=== PATIENT | female | born 1980 | race Caucasian/White ===

== ENCOUNTER → 2018-04-23 17:24 | Outpatient (CLI) | payer OTHER, SELFPAY ==
[2018-04-29 12:15] LABS: HPV Reflexed? NOT INDICATED
== END ==
PROVIDERS: Family Provider Family Medicine; PCP Family Medicine; Referring Provider Obstetrics & Gynecology; Visit Provider Obstetrics & Gynecology
DX: Z12.4 Encounter for screening for malignant neoplasm of cervix (principal)
CPT/HCPCS: 88175; G0145

== ENCOUNTER → 2018-10-25 11:57 | Outpatient (CLI) | payer OTHER, SELFPAY ==
[2018-10-25 14:42] LABS: HIV - WCH Non-Reactive (Nonreactive); Hepatitis B Surface Antibody Reactive; Hepatitis C Antibody Non-Reactive (Nonreactive)
[2018-10-25 15:29] LABS: Chlamydia Trachomatis by PCR Negative (Negative); Neisserai gonorrhoeae by PCR Negative (Negative); Probe Check PASS; Sample Adequacy Control PASS; Specimen Processing Control PASS
[2018-11-01 01:38] LABS: Rapid Plasmin Reagin (RPR) NONREACTIVE (NONREACTIVE)
== END ==
PROVIDERS: Visit Provider Obstetrics & Gynecology
DX: Z11.3 Encounter for screening for infections with a predominantly sexual mode of transmission (principal); N39.0 Urinary tract infection, site not specified
CPT/HCPCS: 36415; 86592; 86703; 86706; 86803; 87086; 87088; 87491; 87591

== ENCOUNTER → 2018-10-28 10:33 | Outpatient (CLI) | payer OTHER, SELFPAY ==
[2018-10-28 12:41] LABS: Potassium 4.1 mmol/L (3.5-5.1)
== END ==
PROVIDERS: Family Provider Dermatology; Visit Provider Dermatology
DX: L71.8 Other rosacea (principal); L70.8 Other acne; Z79.899 Other long term (current) drug therapy
CPT/HCPCS: 36415; 84132

== ENCOUNTER → 2018-11-12 14:18 | Outpatient (CLI) | payer OTHER, SELFPAY | PROVIDERS: Family Provider Family Medicine; PCP Family Medicine; Referring Provider Family Medicine; Visit Provider Family Medicine | DX: N39.0 Urinary tract infection, site not specified (principal) | CPT/HCPCS: 87086; 87088; 87186 ==

== ENCOUNTER → 2019-05-14 17:30 | Outpatient (CLI) | payer OTHER, SELFPAY ==
[2019-05-20 18:34] LABS: HPV APTIMA, High Risk Negative (Negative)
[2019-05-20 18:52] LABS: HPV Reflexed? YES, CHARGE PATIENT
== END ==
PROVIDERS: Visit Provider Obstetrics & Gynecology
DX: Z12.4 Encounter for screening for malignant neoplasm of cervix (principal)
CPT/HCPCS: 87624; 88175; G0145

== ENCOUNTER → 2019-10-16 11:14 | Outpatient (CLI) | payer OTHER, SELFPAY ==
[2019-10-16 13:03] LABS: Absolute Lymphocyte Count 1.98 X10^3/uL (0.83-4.51); Absolute Neutrophil Count 4.7 X10^3/uL (2.0-7.7); Basophil# 0.05 X10^3/uL; Basophil% 0.7 % (0-1); Eosinophil# 0.12 X10^3/uL; Eosinophils% 1.6 % (0-5); Hematocrit 41.9 % (37-47); Hemoglobin 13.3 g/dL (12.0-15.0); Lymphocyte # 1.98 X10^3/ul (4.0); Lymphocyte % 26.7 % (19-41); Mean Corp Hgb Conc 31.7 g/dL (32-36); Mean Corpuscular Hgb 31.7 pg (27.0-32.0); Mean Corpuscular Volume 99.8 fL (81-99); Mean Platelet Vol. 9.8 fl (6.2-12.0); Monocyte% 6.7 % (0-10); NRBC Flagged by Analyzer 0 % (0-5); Neutrophil # 4.72 X10^3/uL (2.7-7.7); Neutrophil % 63.8 % (47-70); Platelet Count 339 K/mm3 (150-450); RBC Distribution Width CV 13.4 % (11.6-14.6); RBC Distribution Width SD 48.9 fl (35.1-43.9); White Blood Count 7.4 K/mm3 (4.4-11.0)
[2019-10-16 13:41] LABS: Vitamin D,25 Hydroxy 27.9 ng/mL
[2019-10-16 13:47] LABS: AST(SGOT) 14 U/L (15-37); Alanine Aminotransfer ALT/SGPT 19 U/L (13-56); Albumin, Serum 3.7 g/dL (3.2-5.0); Alkaline Phosphatase 67 U/L (45-117); Anion Gap 6 (5-15); BUN 19 mg/dL (7-18); BUN/Creat Ratio 21.6 RATIO (10-20); Calcium,Total 8.8 mg/dL (8.5-10.1); Chloride 111 mmol/L (98-107); Cholesterol 209 mg/dL (200); Creatinine, Serum 0.88 mg/dL (0.55-1.02); EST Glomerular Filtration Rate 75 mL/min (>60); Est Glom Filt Rate - Afr Amer 91 mL/min (>60); Globulin 3.7 g/dL (2.2-4.2); Glucose 101 mg/dL (74-106); High Density Lipoprotein 50 mg/dL; Potassium 3.9 mmol/L (3.5-5.1); Protein, Total 7.4 g/dL (6.4-8.2); Sodium Level 140 mmol/L (136-145); Thyroid Stim Hormone (TSH) 1.04 uIU/mL (0.358-3.74); Triglycerides 95 mg/dL; Very Low Density Lipoprotein 19 mg/dL (5-40)
== END ==
PROVIDERS: PCP Family Medicine; Referring Provider Family Medicine; Visit Provider Family Medicine
DX: E55.9 Vitamin D deficiency, unspecified (principal); E66.9 Obesity, unspecified; E78.00 Pure hypercholesterolemia, unspecified
CPT/HCPCS: 36415; 80053; 80061; 82306; 84443; 85025

== ENCOUNTER → 2020-01-21 16:47 | Outpatient (CLI) | payer OTHER, SELFPAY | PROVIDERS: PCP Family Medicine; Referring Provider Family Medicine; Visit Provider Family Medicine | DX: B34.9 Viral infection, unspecified (principal) | CPT/HCPCS: 87635; U0003 ==

== ENCOUNTER → 2020-04-27 15:47 | Outpatient (CLI) | payer OTHER, SELFPAY ==
[2020-04-27 18:31] LABS: Hemoglobin A1c 5.9 % (3.8-5.6)
[2020-04-27 18:42] LABS: AST(SGOT) 18 U/L (15-37); Alanine Aminotransfer ALT/SGPT 31 U/L (13-56); Albumin, Serum 3.6 g/dL (3.2-5.0); Alkaline Phosphatase 71 U/L (45-117); Anion Gap 6 (5-15); BUN 15 mg/dL (7-18); BUN/Creat Ratio 17.8 RATIO (10-20); Calcium,Total 8.9 mg/dL (8.5-10.1); Chloride 106 mmol/L (98-107); Cholesterol 219 mg/dL (200); Creatinine, Serum 0.84 mg/dL (0.55-1.02); EST Glomerular Filtration Rate 79 mL/min (>60); Est Glom Filt Rate - Afr Amer 96 mL/min (>60); Globulin 3.7 g/dL (2.2-4.2); Glucose 84 mg/dL (74-106); High Density Lipoprotein 54 mg/dL; Potassium 3.8 mmol/L (3.5-5.1); Protein, Total 7.3 g/dL (6.4-8.2); Sodium Level 138 mmol/L (136-145); Triglycerides 73 mg/dL; Very Low Density Lipoprotein 15 mg/dL (5-40)
== END ==
PROVIDERS: PCP Family Medicine; Referring Provider Family Medicine; Visit Provider Family Medicine
DX: E78.00 Pure hypercholesterolemia, unspecified (principal); R73.09 Other abnormal glucose
CPT/HCPCS: 36415; 80053; 80061; 83036

== ENCOUNTER → 2020-06-01 15:32 | Outpatient (CLI) | payer OTHER, SELFPAY ==
[2020-06-01 17:57] LABS: Absolute Lymphocyte Count 1.85 X10^3/uL (0.83-4.51); Absolute Neutrophil Count 10.1 X10^3/uL (2.0-7.7); Basophil# 0.05 X10^3/uL; Basophil% 0.4 % (0-1); Eosinophil# 0.08 X10^3/uL; Eosinophils% 0.6 % (0-5); Hematocrit 43.2 % (37-47); Hemoglobin 13.8 g/dL (12.0-15.0); Lymphocyte # 1.85 X10^3/ul (4.0); Lymphocyte % 13.7 % (19-41); Mean Corp Hgb Conc 31.9 g/dL (32-36); Mean Corpuscular Hgb 31.3 pg (27.0-32.0); Mean Platelet Vol. 9.9 fl (6.2-12.0); Monocyte# 1.33 X10^3/uL; Monocyte% 9.9 % (0-10); NRBC Flagged by Analyzer 0 % (0-5); Neutrophil # 10.14 X10^3/uL (2.7-7.7); Platelet Count 344 K/mm3 (150-450); RBC Distribution Width CV 13.1 % (11.6-14.6); Red Blood Count 4.41 M/mm3 (4.2-5.4); White Blood Count 13.5 K/mm3 (4.4-11.0)
[2020-06-01 18:10] LABS: ALB/GLOB Ratio 1.1 RATIO (0.9-2.4); AST(SGOT) 19 U/L (15-37); Alanine Aminotransfer ALT/SGPT 36 U/L (13-56); Albumin, Serum 3.7 g/dL (3.2-5.0); Alkaline Phosphatase 69 U/L (45-117); Anion Gap 6 (5-15); BUN 12 mg/dL (7-18); BUN/Creat Ratio 12.3 RATIO (10-20); Calcium,Total 8.9 mg/dL (8.5-10.1); Chloride 105 mmol/L (98-107); Creatinine, Serum 0.98 mg/dL (0.55-1.02); EST Glomerular Filtration Rate 66 mL/min (>60); Est Glom Filt Rate - Afr Amer 80 mL/min (>60); Globulin 3.5 g/dL (2.2-4.2); Glucose 79 mg/dL (74-106); Potassium 3.8 mmol/L (3.5-5.1); Protein, Total 7.2 g/dL (6.4-8.2); Sodium Level 138 mmol/L (136-145)
== END ==
PROVIDERS: PCP Family Medicine; Referring Provider Family Medicine; Visit Provider Family Medicine
DX: N39.0 Urinary tract infection, site not specified (principal); N10 Acute pyelonephritis
CPT/HCPCS: 36415; 80053; 85025; 87077; 87086; 87088; 87186

== ENCOUNTER → 2020-06-01 16:30 | Outpatient (CLI) | payer OTHER, SELFPAY ==
--- NOTE | 2020-06-01 16:33 | CT_ITS ---
STUDY: CT ABDOMEN AND PELVIS WITH CONTRAST REASON FOR EXAM: Female, 40 years old. PYELONEPHRITIS,ACUTE RADIATION DOSAGE (If Supplied By Facility): CTDIvol = ( 18.71 ) mGy, DLP = ( 2286.55 ) mGycm TECHNIQUE: Transaxial images were obtained from the dome of the diaphragm to the symphysis pubis without oral contrast. IV 100mL Isovue-370 was administered. Sagittal and coronal images were reconstructed. Individualized dose optimization techniques were used for this CT. COMPARISON: None. FINDINGS: The visualized lung bases are unremarkable. The visualized portions of the heart are within normal limits. Normal liver. Normal gallbladder and extrahepatic biliary system. Normal spleen. Normal pancreas. Normal bilateral adrenal glands. Normal right kidney. 30 mm staghorn calculus of the lodged at the ureteropelvic junction with the moderate hydronephrosis and perinephric edema. Normal visualized stomach. Normal small intestine. Normal colon. The appendix is visualized and appears normal. Normal abdominal aorta. Normal inferior vena cava. Normal retroperitoneum. Normal urinary bladder. Status post bilateral tubal ligation Normal abdominal wall. Normal osseous structures. CT/Abdomen/Pelvis WITH Contrast IMPRESSION: 30 mm staghorn calculus of the left kidney lodged at the ureteropelvic junction with moderate hydronephrosis and perinephric edema. Electronically Signed: Kirby Garcia MD at 17:31 EDT Tel , Service support ,
== END ==
PROVIDERS: PCP Family Medicine; Referring Provider Family Medicine; Visit Provider Family Medicine
DX: N10 Acute pyelonephritis (principal)
CPT/HCPCS: 74177; Q9967

== ENCOUNTER 2020-06-01 18:45 | Inpatient (IN) | payer OTHER, SELFPAY ==
[2020-06-01 18:46] VITALS: BP 125/32; PULSE 111; RESP 28; TEMP 37.1; O2SAT 98; BMI 38.0
[2020-06-01 18:48] VITALS: BP 125/32; PULSE 111; RESP 28; TEMP 37.1; O2SAT 98
--- NOTE | 2020-06-01 19:04 | ED.DCSUM_ITS ---
History of Present Illness Chief Complaint: Flank Pain Informant: Patient Narrative: 40-year-old female with no significant past medical history presents with concern for left-sided back and flank pain. States it began approximately week ago. Was low-grade and intermittent. Began last night becoming more intense. Describes it is more sharp and constant. States that she was seen by primary care physician this morning who had ordered her some ciprofloxacin. He also ordered an outpatient CT. Was called by Dr. Pierson with concern for a large kidney stone and to report to the emergency department. Admits to fever and chills. States that she has been nauseous not vomiting. Denies any vaginal bleeding or discharge. Past Medical History - Allergies and Home Meds Allergies/Adverse Reactions: Allergies bacitracin [From Neosporin ([id number])] Allergy (Verified 06/01/20 18:49) Hives minocycline Allergy (Verified 06/01/20 18:49) Hives neomycin [From Neosporin ([id number])] Allergy (Verified 06/01/20 18:49) Hives polymyxin B [From Neosporin ([id number])] Allergy (Verified 06/01/20 18:49) Hives Primary Care Physician: Shad Diaz MD [Primary Care Provider] - Prior records reviewed: Yes Past Medical History: None Surgical History: - - C section Lives: Spouse/ Significant Other Smoking Status: Never smoker Alcohol: None Drugs: None Review of Systems General: Denies: Chills, Fever, Sweats Eyes: Denies: Visual changes - bilaterally, Diplopia ENT: Denies: Rhinorrhea, Sore throat Cardiovascular: Denies: Chest pain, Palpitations Respiratory: Denies: Dyspnea, Cough, Dyspnea on exertion Gastrointestinal: Reports: Abdominal pain, Nausea. Denies: Vomiting, Diarrhea, Melena, Hematochezia Genitourinary: Denies: Dysuria, Hematuria, Frequency Musculoskeletal: Reports: Back pain. Denies: Extremity Pain Skin: Denies: Rash, Wounds Neurological: Denies: Headache, Weakness, Numbness Physical Exam Vital Signs/Narrative: Vital Signs Temp Pulse Resp BP Pulse Ox 06/01/20 18:48 98.7 F 111 H 28 H 125/32 H 98 06/01/20 18:46 98.7 F 111 H 28 H 125/32 H 98 Inital Vital Signs reviewed: Yes General: Well nourished, Well developed, No Acute Distress Head: Normocephalic, Atraumatic Eyes: Perrl, EOMI ENT: Moist mucous membranes, No rhinorrhea Neck: Supple, Nontender Cardiovascular: Regular rate, Regular rhythm, No murmurs Respiratory: No distress, CTA bilaterally, Chest nontender Abdomen: Soft, Nontender, Nondistended, Normal bowel sounds Back: Normal Inspection, CVA tenderness Extremities: Nontender, No edema Skin: Normal color, No rash Neurological: Alert, Oriented x3, Cranial nerves II-XII grossly intact, Normal Strength, Normal Sensation Psychological: Normal affect, Normal Mood Diagnostic/Tx/Re-eval Laboratory Data 06/01/20 06/01/20 18:59 19:27 Lactic Acid 1.7 Urine Color Yellow Urine Clarity Clear Urine pH 8.0 Ur Specific [place] 1.010 Urine Protein 15 H Urine Glucose (UA) Normal Urine Ketones 15 H Urine Occult Blood 150 H Urine Nitrite Negative Urine Bilirubin Negative Urine Urobilinogen Normal Ur Leukocyte Esterase 500 H Urine RBC 0-5 SEEN Urine WBC 5-10 SEEN Ur Squamous Epith Cells 5-10 SEEN Urine Bacteria RARE Urine Mucus 0 SEEN - Medical Decision Making Patient appears in moderate distress secondary to her left-sided flank pain. Was given 1 L of normal saline, morphine, Toradol, Zofran. Patient had outpatient CT which showed left-sided obstructing 3 cm staghorn calculus. Patient was having fevers as well as tachycardia and leukocytosis. She was given Rocephin. Lactic acid normal. Blood cultures pending. Spoke with urologist on-call Dr. Matamoros will admit the patient for surgery tomorrow. Patient stable at time of admission. Impression: 1. Infected left-sided staghorn calculus 2. Sepsis ED Disposition - Plan for ED Patient: Disposition: Acute Care Hospital [facility] Referrals: Shad Diaz MD [Primary Care Provider] -
[2020-06-01] MEDS: 0.9% Normal Saline 1,000 ML 1000 ML IV (19:25)
[2020-06-01] MEDS: Ketorolac 15 MG/ML Vial IV (19:25)
[2020-06-01] MEDS: Ondansetron 4 MG/2 ML Vial IV (19:25)
[2020-06-01] MEDS: Morphine 4 MG/ML Syringe IV (19:26)
[2020-06-01 19:31] LABS: Mucous, Urine 0 SEEN /hpf (<or=2+)
[2020-06-01 19:32] LABS: Color, Urine Yellow (Yellow); Glucose, Dipstick Normal (Normal); Ketone-Dipstick 15 mg/dl (Negative); Leukocyte Esterase-Dipstick 500 /ul (Negative); Nitrite-Dipstick Negative (Negative); Occult Blood-Urine 150 /ul (Negative); Protein-Dipstick 15 mg/dl (Negative); Urine Bilirubin Dipstick Negative (Negative); Urine Clarity Clear (Clear); Urine Urobilinogen Normal (Normal)
[2020-06-01 19:38] LABS: Red Blood Cells-Urine 0-5 SEEN /hpf (0-5); Squamous Epithelial Cells - UA 5-10 SEEN /hpf (5-10); White Blood Cells 5-10 SEEN /hpf (0-5)
[2020-06-01 19:39] LABS: Bacteria RARE /hpf (None Seen)
[2020-06-01] MEDS: Ceftriaxone 1 GM/50 ML BAG IV (19:40)
[2020-06-01 20:06] LABS: Lactic Acid 1.7 mmol/L (0.4-1.9)
[2020-06-01 20:27] VITALS: BP 102/68; PULSE 78; RESP 16; TEMP 36.6; O2SAT 98
[2020-06-01 21:14] VITALS: BMI 38.9; BMI 39.0
[2020-06-01 21:26] VITALS: BP 103/52; PULSE 119; RESP 24; TEMP 38.5; O2SAT 94
[2020-06-01] MEDS: Lactated Ringers 1,000 ML 150 ML IV (21:55)
[2020-06-01] MEDS: Acetaminophen 325 MG Tablet PO (21:55)
[2020-06-01] MEDS: Ciprofloxacin 400 MG/200 ML BAG 200 MG IV (21:56)
[2020-06-01] MEDS: 0.9% Normal Saline 1,000 ML 999 ML IV (22:07)
[2020-06-01] MEDS: 0.9% Saline Lock 10 ML Syringe IV (22:07)
[2020-06-01 22:20] VITALS: BP 113/62; PULSE 105; RESP 18; TEMP 38; O2SAT 95
[2020-06-01 23:03] VITALS: TEMP 37.7
[2020-06-02] VITALS (15 sets, daily range): BP systolic 87–136; BP diastolic 47–113; PULSE 67–88; RESP 16–18; TEMP 36.3–37.1; O2SAT 91–99; BMI 38.9
[2020-06-02] MEDS: proCHLORPERazine 10 MG/2 ML Vial 5 MG IV (00:22)
[2020-06-02] MEDS: Lactated Ringers 1,000 ML 150 ML IV ×3 (05:47→19:24)
[2020-06-02 06:57] LABS: Hemoglobin 11.2 g/dL (12.0-15.0); Mean Corp Hgb Conc 32.9 g/dL (32-36); Mean Corpuscular Hgb 32.1 pg (27.0-32.0); Mean Corpuscular Volume 97.4 fL (81-99); Mean Platelet Vol. 9.5 fl (6.2-12.0); Platelet Count 247 K/mm3 (150-450); RBC Distribution Width CV 13.3 % (11.6-14.6); Red Blood Count 3.49 M/mm3 (4.2-5.4); White Blood Count 19.7 K/mm3 (4.4-11.0)
[2020-06-02 07:24] LABS: Anion Gap 6 (5-15); BUN 13 mg/dL (7-18); BUN/Creat Ratio 11.8 RATIO (10-20); Chloride 107 mmol/L (98-107); EST Glomerular Filtration Rate 58 mL/min (>60); Est Glom Filt Rate - Afr Amer 70 mL/min (>60); Estimated Creatinine Clearance 65.45 ml/min; Glucose 97 mg/dL (74-106); Potassium 3.6 mmol/L (3.5-5.1); Sodium Level 139 mmol/L (136-145)
--- NOTE | 2020-06-02 07:33 | HP.PCM_ITS ---
Problem List (1) Sepsis Status: Acute Qualifiers: Sepsis type: Escherichia coli Severe sepsis shock status: without septic shock (2) Left renal stone Status: Acute History of Present Illness Date of Admission: 06/01/20 Chief Complaint: Obstructing infected stone left The patient is a 40 year old female who had a CAT scan done by her primary care physician that demonstrated very large stone in the left kidney she is also having fevers and chills elevated white blood count tachycardia and signs of sepsis. She was admitted to the hospital with IV antibiotics broad-spectrum. She is clinically stable. Pain in the left side is decreased. She is never had a kidney stone before fairly healthy with no major medical problems. Past Medical History Allergies bacitracin [From Neosporin ([id number])] Allergy (Verified 06/01/20 18:49) Hives minocycline Allergy (Verified 06/01/20 18:49) Hives neomycin [From Neosporin ([id number])] Allergy (Verified 06/01/20 18:49) Hives polymyxin B [From Neosporin ([id number])] Allergy (Verified 06/01/20 18:49) Hives Home Medications: Ambulatory Orders Medication Instructions Recorded Fluoxetine [Prozac] 20 mg PO DAILY 06/01/20 Surgical History: - - C section Psychiatric History: No pertinent psych hx FINANCIAL SERVICES DIRECTOR History: No pertinent FINANCIAL SERVICES DIRECTOR history Lives: Spouse/ Significant Other Smoking Status: Never smoker Alcohol: None Drugs: None - *Family History Maternal History Items: No pertinent history Review of Systems Constitutional: Reports: Chills, Fever. Denies: Weight Change HEENT: Denies: Head Aches, Sinus Congestion, Sinus Drainage Cardiovascular: Denies: Chest Pain, Palpitations Respiratory: Denies: Cough, Shortness of breath at rest, Sputum production Gastrointestinal: Reports: Abdominal Pain, Nausea, Vomiting Genitourinary: Denies: Dysuria Musculoskeletal: Denies: Joint Pain, Joint Tenderness Skin: Denies: Rash, Wounds Neurological: Denies: Numbness, Tingling, Focal weakness Psychiatric: Denies: Anxiety, Depression, Homicidal Ideations, Suicidal Ideations Hematologic/ Lymphatic: Denies: Easy Bruising, Easy Bleeding VTE Information - Inpt Only VTE Present on Admission: No - Physical Exam Vitals/I&O's: Vital Signs Temp Pulse Resp BP Pulse Ox 97.4 F L 71 16 102/52 L 97 06/02/20 03:50 06/02/20 03:50 06/02/20 03:50 06/02/20 03:50 06/02/20 03:50 Oxygen Delivery Method Room Air Weight: 113 kg Body Mass Index (BMI) 38.9 Intake and Output for Last 24 Hours 05/31/20 06/01/20 06/02/20 23:59 23:59 23:59 Intake Total 2252.5 / 2252.5 997.5 / 997.5 Balance 2252.5 / 2252.5 997.5 / 997.5 General: Alert, Oriented x3, Cooperative HEENT: Atraumatic, PERRLA, EOMI, Normocephalic Neck: Supple, No JVD, Negative Carotid Bruits Lungs: Clear to auscultation, Normal air movement Cardiovascular: Regular rate, No murmurs Abdomen: Bowel Sounds Present, Soft, Non Tender Extremities: No edema, Capillary Refill Less than 3 Seconds Skin: No rashes, No breakdown Musculoskeletal: No Tenderness to Palpation of Joints or Extremities Neurological: Cranial nerves II-XII grossly intact Psych/Mental Status: Normal Affect, Appropriate Microbiology Past 72 Hours 06/01/20 19:27 Blood Culture (Wb) - Anticubital Left Blood Culture - Preliminary 06/01/20 19:30 Blood Culture (Wb) - Anticubital Right Blood Culture - Preliminary 06/01/20 21:50 Mucosa - Nose SARS-CoV-2 Antigen (Rapid) - Final Laboratory Results 06/01/20 18:59: Urine Color Yellow, Urine Clarity Clear, Urine pH 8.0, Ur Specific [place] 1.010, Urine Protein 15 H, Urine Glucose (UA) Normal, Urine Ketones 15 H, Urine Occult Blood 150 H, Urine Nitrite Negative, Urine Bilirubin Negative, Urine Urobilinogen Normal, Ur Leukocyte Esterase 500 H, Urine RBC 0-5 SEEN, Urine WBC 5-10 SEEN, Ur Squamous Epith Cells 5-10 SEEN, Urine Bacteria RARE, Urine Mucus 0 SEEN 06/01/20 19:27: Lactic Acid 1.7 06/02/20 06:05: WBC 19.7 H, RBC 3.49 L, Hgb 11.2 L, Hct 34.0 L, MCV 97.4, MCH 32.1 H, MCHC 32.9, RDW Std Deviation 48.0 H, RDW Coeff of Teri 13.3, Plt Count 247, MPV 9.5 06/02/20 06:05: Sodium 139, Potassium 3.6, Chloride 107, Carbon Dioxide 26.0, Anion Gap 6, BUN 13, Creatinine 1.10 H, Estim Creat Clear Calc 65.45, Est GFR (MDRD) Af Amer 70, Est GFR (MDRD) Non-Af 58 L, BUN/Creatinine Ratio 11.8, Glucose 97, Calcium 8.0 L Current Medications Acetaminophen (Acetaminophen 325 Mg Tablet) 325 - 650 mg PO Q4H PRN PRN PRN Reason: pain score 1-10/fever/headache Last Admin: 06/01/20 21:55 Dose: 650 mg Documented by: Hydrocodone Bitart/Acetaminophen (Hydrocodone Bitartrate/Apap 5/325 Tablet) 1 - 2 tablet PO Q6H PRN PRN PRN Reason: Pain Score 1-5 Fluoxetine HCl (Fluoxetine 20 Mg Capsule) 20 mg PO DAILY [facility] Lactated Ringer's () 1,000 mls @ 150 mls/hr IV .Q6H40M [facility] Last Admin: 06/02/20 05:47 Dose: 150 mls/hr Documented by: Ciprofloxacin (Cipro) 400 mg in 200 mls @ 200 mls/hr IV Q12 [facility] Stop: 06/02/20 10:59 Last Infusion: 06/01/20 22:56 Dose: Infused Documented by: Ketorolac Tromethamine (Ketorolac 15 Mg/Ml Vial) 15 mg IV Q6H PRN PRN PRN Reason: PAIN Stop: 06/04/20 01:31 Morphine Sulfate (Morphine 2 Mg/Ml Syringe) 2 mg IV Q2H PRN PRN Reason: Pain Score 6-10 Ondansetron HCl (Ondansetron 4 Mg/2 Ml Vial) 4 mg IV Q8H PRN PRN Reason: Nausea Prochlorperazine Edisylate (Prochlorperazine 10 Mg/2 Ml Vial) 5 mg IV Q6H PRN PRN PRN Reason: NAUSEA/VOMITING Last Admin: 06/02/20 00:22 Dose: 5 mg Documented by: Sodium Chloride (0.9% Saline Lock 10 Ml Syringe) 10 - 40 ml IV UD PRN PRN Reason: SALINE FLUSH Last Admin: 06/01/20 22:07 Dose: 10 ml Documented by: Assessment/Plan All Active Problems Sepsis (Acute) Left renal stone (Acute) Admitted for sepsis she had positive blood cultures were given broad-spectrum antibiotics continue with hydration. Plan to take her to surgery today for cystoscopy and left then placement.
[2020-06-02 08:47] LABS: Internal QC Validated? YES +Cl - CLEAR BKGD; Pregnancy, Urine Negative Negative
[2020-06-02] MEDS: Ciprofloxacin 400 MG/200 ML BAG 200 MG IV (09:21)
--- NOTE | 2020-06-02 09:21 | NURSING ---
off unit to OR
[2020-06-02] MEDS: Lidocaine Jelly 2% 20 ML Syringe (URO-JET) 20 APPLIC (10:35)
--- NOTE | 2020-06-02 10:45 | OP.PCM_ITS ---
Problem List (1) Sepsis Status: Acute Qualifiers: Sepsis type: Escherichia coli Severe sepsis shock status: without septic shock (2) Left renal stone Status: Acute Report of Operation Date of Procedure: 06/02/20 Pre-Operative Diagnosis: Staghorn calculus with sepsis Post-Operative Diagnosis: Same Surgery/Procedure Performed:: Cystoscopy, left retrograde pyelogram, left stent placement Description of Surgical Findings:: Patient was taken back to the operating room after induction of general anesthesia, the patient was placed in dorsolithotomy position. The urethra and genitals were prepped and draped in usual sterile fashion. Using a 21 Swedish rigid cystourethroscope the entire length of the urethra was normal then went into the bladder. Identified the trigone the left and right ureteral orifice. I then cannulated the left orifice and advanced a wire up into the kidney. I sergio sullivan backloaded a 5 Swedish open ended catheter over the wire and injected contrast to delineate the anatomy with a large 3cm stone at the left UPJ. After the retrograde was performed I then used fluoroscopic images and guidance to advanced a wire up into the kidney and over the 0.038 glidewire I advanced a 7 Swedish by 26 cm double pigtail stent. I then pulled the 0.038 Glidewire off and the stent coiled in the kidney bladder good position. The bladder was then drained. We confirmed the position of the stent by fluoroscopy. Patient anesthetic was reversed and was taken back to the PACU in good condition. Type of Anesthesia:: General Drains: stent 7fr x 26cm - Admit VTE Documentation VTE Present on Admission: No
--- NOTE | 2020-06-02 11:54 | SUR.PHASEI ---
PACU: SBP RUNNING BETWEEN 89-95, ASYMPTOMATIC, PATIENT EMPHATICALLY STATES, I FEEL GREAT! UPON VITALS REVIEW, SBP DOES RUN IN LOW 100'S AT TIMES; DR BAH, ANESTHESIA NOTIFIED, OKAY TO TRANSFER TO [facility] 3.
--- NOTE | 2020-06-02 13:16 | CASEMGMT ---
RN RONEY Face to Face with patient for initial transition planning/care coordination assessment. RN CM introduced self and role at [facility]. Patient lying in bed, alert and oriented. Patient willing to participate in assessment and is able to answer all questions appropriately. Care providers, pharmacy, and demographics verified. Patient wishes to discharge home, denies need for home health at this time. Patient states she has no further needs or concerns at this time. CM to follow for discharge planning needs that may arise. PCP: Joe Specialists: Ruthy, CASINO HOST; Christopher, electric shaver mechanic [facility]erred Pharmacy: [facility] Insurance: [employer] Prescription Benefit: yes Living Will/HPOA: has living will LNOK: Living Arrangements: patient lives with in a single story home with 1 step to enter the home. Patient states she is independent at home. Transportation: self/ DME/HHC: Patient denies previous HHC or DME. No needs anticipated at this time. Disposition Plan: Patient to discharge home with family support and follow-up plans in place. Sarah CASAS, RN, CM
[2020-06-02] MEDS: HYDROcodone Bitartrate/Apap 5/325 Tablet PO ×2 (17:05→23:07)
[2020-06-02] MEDS: FLUoxetine 20 MG Capsule PO (17:05)
[2020-06-03] MEDS: Lactated Ringers 1,000 ML 150 ML IV (02:37)
[2020-06-03 03:00] VITALS: BP 128/79; PULSE 76; RESP 16; TEMP 37; O2SAT 95
[2020-06-03 07:02] LABS: Hematocrit 33.4 % (37-47); Hemoglobin 10.7 g/dL (12.0-15.0); Mean Corpuscular Hgb 31.7 pg (27.0-32.0); Mean Corpuscular Volume 98.8 fL (81-99); Mean Platelet Vol. 9.4 fl (6.2-12.0); Platelet Count 228 K/mm3 (150-450); RBC Distribution Width CV 13.3 % (11.6-14.6); RBC Distribution Width SD 48.2 fl (35.1-43.9); Red Blood Count 3.38 M/mm3 (4.2-5.4); White Blood Count 12.8 K/mm3 (4.4-11.0)
[2020-06-03] MEDS: HYDROcodone Bitartrate/Apap 5/325 Tablet PO (07:23)
[2020-06-03 07:28] VITALS: BP 115/72; PULSE 83; RESP 18; TEMP 37.7; O2SAT 95
--- NOTE | 2020-06-03 07:35 | PCM.DC.URO ---
Discharge Diet: Light diet - advance as tolerated Discharge Activity: Return to Normal Activity Allergies/Adverse Reactions: Allergies bacitracin [From Neosporin ([id number])] Allergy (Verified 06/01/20 18:49) Hives minocycline Allergy (Verified 06/01/20 18:49) Hives neomycin [From Neosporin ([id number])] Allergy (Verified 06/01/20 18:49) Hives polymyxin B [From Neosporin ([id number])] Allergy (Verified 06/01/20 18:49) Hives Medications to take at Discharge Fluoxetine [Prozac] 20 mg PO DAILY 06/01/20 Ciprofloxacin [Cipro] 500 mg PO BID #14 tablet 06/03/20 The following prescriptions were given: Ciprofloxacin [Cipro] 500 mg PO BID #14 tablet Transmission Status: Pending to [facility] Primary Care Physician: Shad Diaz MD [Primary Care Provider] - Test Results: Test results from this visit will be discussed in further detail at your follow-up appointment, if applicable. Please Follow Up With: Jacobo Petty MD When: in 2 weeks, please call to make an appointment.
--- NOTE | 2020-06-03 07:35 | PCM.DC.SUM ---
Discharge Date and Diagnosis - Problem List Patient Problems: Active and Suspected Problems Sepsis (Acute) Left renal stone (Acute) Date of Admission: 06/01/20 Date of Discharge: 06/03/20 - Primary Discharge Diagnosis Acute Problems: Active Problems Sepsis (Acute) Left renal stone (Acute) Hospital Course and Treatment Operations: - - Cystoscopy and left stent placement Procedures: None Summary of Care Provided: The patient is a 40 year old female who presented with a 2.5 cm stone in the left kidney underwent cystoscopy and left stent placement for sepsis without septic shock she did have blood positive blood cultures and urine is positive for gram-negative rods most likely has E. coli she is responded well to Cipro we will have sent her home with antibiotics today. Patient Problems: Active and Suspected Problems Sepsis (Acute) Left renal stone (Acute) - Physical Exam Vitals/I&O's: Vital Signs Temp Pulse Resp BP Pulse Ox 99.9 F H 83 18 115/72 95 06/03/20 07:28 06/03/20 07:28 06/03/20 07:28 06/03/20 07:28 06/03/20 07:28 Oxygen Flow Rate (L/min) 1.5 Oxygen Delivery Method Room Air Weight: 113 kg Body Mass Index (BMI) 38.9 Intake and Output for Last 24 Hours 06/01/20 06/02/20 06/03/20 23:59 23:59 23:59 Intake Total 2252.5 / 2252.5 4047.5 / 4047.5 1000 / 1000 Output Total 1550 / 1550 300 / 300 Balance 2252.5 / 2252.5 2497.5 / 2497.5 700 / 700 General: Alert, Oriented x3, Cooperative HEENT: Atraumatic, PERRLA, EOMI, Normocephalic Neck: Supple, No JVD, Negative Carotid Bruits Lungs: Clear to auscultation, Normal air movement Cardiovascular: Regular rate, No murmurs Abdomen: Bowel Sounds Present, Soft, Non Tender Extremities: No edema, Capillary Refill Less than 3 Seconds Skin: No rashes, No breakdown Musculoskeletal: No Tenderness to Palpation of Joints or Extremities Neurological: Cranial nerves II-XII grossly intact Psych/Mental Status: Normal Affect, Appropriate Microbiology Past 72 Hours 06/01/20 19:27 Blood Culture (Wb) - Anticubital Left Blood Culture - Preliminary GNR lactose industrial relations manager 06/01/20 19:30 Blood Culture (Wb) - Anticubital Right Blood Culture - Preliminary GNR lactose industrial relations manager 06/01/20 21:50 Mucosa - Nose SARS-CoV-2 Antigen (Rapid) - Final Laboratory Results 06/01/20 18:59: Urine Test Negative 06/03/20 06:15: WBC 12.8 H, RBC 3.38 L, Hgb 10.7 L, Hct 33.4 L, MCV 98.8, MCH 31.7, MCHC 32.0, RDW Std Deviation 48.2 H, RDW Coeff of Teri 13.3, Plt Count 228, MPV 9.4 06/03/20 06:15: Sodium Pending, Potassium Pending, Chloride Pending, Carbon Dioxide Pending, Anion Gap Pending, BUN Pending, Creatinine Pending, Est GFR (MDRD) Af Amer Pending, Est GFR (MDRD) Non-Af Pending, BUN/Creatinine Ratio Pending, Glucose Pending, Calcium Pending Current Medications Acetaminophen (Acetaminophen 325 Mg Tablet) 325 - 650 mg PO Q4H PRN PRN PRN Reason: pain score 1-10/fever/headache Last Admin: 06/01/20 21:55 Dose: 650 mg Documented by: Hydrocodone Bitart/Acetaminophen (Hydrocodone Bitartrate/Apap 5/325 Tablet) 1 - 2 tablet PO Q6H PRN PRN PRN Reason: Pain Score 1-5 Last Admin: 06/03/20 07:23 Dose: 2 tablet Documented by: Fluoxetine HCl (Fluoxetine 20 Mg Capsule) 20 mg PO DAILY [facility] Last Admin: 06/02/20 17:05 Dose: 20 mg Documented by: Lactated Ringer's () 1,000 mls @ 150 mls/hr IV .Q6H40M [facility] Last Admin: 06/03/20 02:37 Dose: 150 mls/hr Documented by: Ketorolac Tromethamine (Ketorolac 15 Mg/Ml Vial) 15 mg IV Q6H PRN PRN PRN Reason: PAIN Stop: 06/04/20 01:31 Morphine Sulfate (Morphine 2 Mg/Ml Syringe) 2 mg IV Q2H PRN PRN Reason: Pain Score 6-10 Ondansetron HCl (Ondansetron 4 Mg/2 Ml Vial) 4 mg IV Q8H PRN PRN Reason: Nausea Prochlorperazine Edisylate (Prochlorperazine 10 Mg/2 Ml Vial) 5 mg IV Q6H PRN PRN PRN Reason: NAUSEA/VOMITING Last Admin: 06/02/20 00:22 Dose: 5 mg Documented by: Sodium Chloride (0.9% Saline Lock 10 Ml Syringe) 10 - 40 ml IV UD PRN PRN Reason: SALINE FLUSH Last Admin: 06/01/20 22:07 Dose: 10 ml Documented by: Discharge Diet: Light diet - advance as tolerated Discharge Activity: Return to Normal Activity Home Medications: Medications to take at Discharge Fluoxetine [Prozac] 20 mg PO DAILY 06/01/20 Ciprofloxacin [Cipro] 500 mg PO BID #14 tablet 06/03/20 Following Prescriptions Were Given to Patient: Ciprofloxacin [Cipro] 500 mg PO BID #14 tablet Transmission Status: Pending to [facility] Primary Care Physician: Shad Diaz MD [Primary Care Provider] - Please Follow Up With: Jacobo Petty MD When: in 2 weeks, please call to make an appointment. Medical Necessity - Tobacco Use Smoking Status: Never smoker Meaningful Use Info Meaningful Use Diagnoses (Choose all that apply): None applicable
[2020-06-03 07:51] LABS: Anion Gap 4 (5-15); BUN 10 mg/dL (7-18); BUN/Creat Ratio 11.9 RATIO (10-20); Calcium,Total 8.1 mg/dL (8.5-10.1); Chloride 110 mmol/L (98-107); Creatinine, Serum 0.84 mg/dL (0.55-1.02); EST Glomerular Filtration Rate 80 mL/min (>60); Est Glom Filt Rate - Afr Amer 96 mL/min (>60); Estimated Creatinine Clearance 85.71 ml/min; Glucose 120 mg/dL (74-106); Potassium 3.6 mmol/L (3.5-5.1); Sodium Level 141 mmol/L (136-145)
--- NOTE | 2020-06-03 10:42 | PHA.DC.MC ---
Pharmacy Service has performed discharge medication reconciliation and counseling for this patient. The patient was counseled on the following discharge medications and changes in medications for homegoing were reviewed. 1. CIPROFLOXACIN The Reason for Use, instructions for use, and potential side effects were reviewed for all new medications. The patient's questions regarding all of their medications were answered. The patient was able to verbally demonstrate an understanding of their discharge medications. Home Medications Fluoxetine [Prozac] 20 mg PO DAILY 06/01/20 Ciprofloxacin [Cipro] 500 mg PO BID #14 tablet 06/03/20 The patient's discharge medication list was reviewed for discrepancies and discrepancies were resolved.
== END 2020-06-03 11:13 | disposition home or self-care (01) | DRG 855 ==
LOC: ED 19:20 → MS3 20:18
PROVIDERS: Admitting Provider Urology; Emergency Provider Emergency Medicine; PCP Family Medicine; Visit Provider Urology
PROC: 0T778DZ Dilation of Left Ureter with Intraluminal Device, Via Natural or Artificial Opening Endoscopic (ICD-10-PCS; CPT 52332; principal; 2020-06-02 09:50)
DX: A41.9 Sepsis, unspecified organism (principal); N20.0 Calculus of kidney; B96.20 Unspecified Escherichia coli [E. coli] as the cause of diseases classified elsewhere
CPT/HCPCS: 36415; 76000; 80048; 81001; 81025; 83605; 85027; 87040; 87077; 87186; 87426; 99284; J7030; J7050; J7120; A4216; C1769; C1874; J0744; J2405

== ENCOUNTER 2020-06-09 09:16 | Day surgery (SDC) | payer OTHER, SELFPAY ==
[2020-06-02 08:15] VITALS: BMI 38.9
--- NOTE | 2020-06-09 09:24 | RAD_ITS ---
STUDY: X-RAY - ABDOMEN/PELVIS REASON FOR EXAM: Female, 40 years old. Preop TECHNIQUE: Single AP view of the abdomen / pelvis. COMPARISON: None. FINDINGS: There is a moderate amount of colonic fecal material. The left-sided double-J stent catheter is seen with the proximal tip in the left renal pelvis and the distal tip in the left side of the bladder. There is evidence of a staghorn calculus in the left renal pelvis extending into both the upper and middle pole calyces of the left kidney. Tubal ligation clips are seen in the pelvis. Normal visualized osseous structures. RAD/Abdomen Single View IMPRESSION: Left-sided staghorn calculus with extension into the upper and midpole calyces. Left-sided double-J stent catheter is seen with the proximal tip in the renal pelvis and distal tip in the left side of the bladder. Electronically Signed: Yefri Khanna MD at 19:11 EDT , Service support ,
[2020-06-09 10:19] VITALS: BP 134/76; PULSE 76; RESP 18; TEMP 37; O2SAT 98; BMI 37.7
[2020-06-09] MEDS: Lactated Ringers 1,000 ML 100 ML IV ×2 (10:26→13:14)
--- NOTE | 2020-06-09 11:38 | PCM.HP.STD ---
Problem List (1) Left renal stone Status: Acute History of Present Illness Date of Admission: 06/09/20 Chief Complaint: Large left renal calculus The patient is a 40 year old female status post stent placement for obstructing stone in the left renal pelvis she now presents to the hospital for shockwave lithotripsy. Past Medical History Allergies bacitracin [From Neosporin ([id number])] Allergy (Verified 06/09/20 10:26) Hives minocycline Allergy (Verified 06/09/20 10:26) Hives neomycin [From Neosporin ([id number]-sbj-xaxju)] Allergy (Verified 06/09/20 10:26) Hives polymyxin B [From Neosporin (ose-qqv-dzhpf)] Allergy (Verified 06/09/20 10:26) Hives Home Medications: Ambulatory Orders Medication Instructions Recorded Fluoxetine [Prozac] 20 mg PO DAILY 06/01/20 Ciprofloxacin [Cipro] 500 mg PO BID #14 tablet 06/03/20 Acetaminophen 325 mg PO PRN PRN 06/04/20 Ibuprofen 200 mg PO PRN PRN 06/04/20 Surgical History: - - C section Psychiatric History: No pertinent psych hx 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 Smoking Status: Never smoker - *Family History Maternal History Items: No pertinent history Review of Systems Constitutional: Denies: Chills, Fever, Weight Change HEENT: Denies: Head Aches, Sinus Congestion, Sinus Drainage Cardiovascular: Denies: Chest Pain, Palpitations Respiratory: Denies: Cough, Shortness of breath at rest, Sputum production Gastrointestinal: Denies: Abdominal Pain, Nausea, Vomiting Genitourinary: Denies: Dysuria Musculoskeletal: Denies: Joint Pain, Joint Tenderness Skin: Denies: Rash, Wounds Neurological: Denies: Numbness, Tingling, Focal weakness Psychiatric: Denies: Anxiety, Depression, Homicidal Ideations, Suicidal Ideations Hematologic/ Lymphatic: Denies: Easy Bruising, Easy Bleeding VTE Information - Inpt Only VTE Present on Admission: No - Physical Exam Vitals/I&O's: Vital Signs Temp Pulse Resp BP Pulse Ox 98.6 F 76 18 134/76 H 98 06/09/20 10:19 06/09/20 10:19 06/09/20 10:19 06/09/20 10:19 03/24/21 10:19 Oxygen Delivery Method Room Air Weight: 109.2 kg Body Mass Index (BMI) 37.7 General: Alert, Oriented x3, Cooperative HEENT: Atraumatic, PERRLA, EOMI, Normocephalic Neck: Supple, No JVD, Negative Carotid Bruits Lungs: Clear to auscultation, Normal air movement Cardiovascular: Regular rate, No murmurs Abdomen: Bowel Sounds Present, Soft, Non Tender Extremities: No edema, Capillary Refill Less than 3 Seconds Skin: No rashes, No breakdown Musculoskeletal: No Tenderness to Palpation of Joints or Extremities Neurological: Cranial nerves II-XII grossly intact Psych/Mental Status: Normal Affect, Appropriate Current Medications Cefazolin Sodium 2 gm/ Sodium (Chloride) 110 mls @ 150 mls/hr IV PREOP ONE Stop: 06/09/20 12:08 Lactated Ringer's () 1,000 mls @ 100 mls/hr IV .Q10H REA Last Admin: 06/09/20 10:26 Dose: 100 mls/hr Documented by: Assessment/Plan All Active Problems Sepsis (Acute) Left renal stone (Acute) 40-year-old female status post stent placement obstructing stone and infection at this point she is treated treated with antibiotics for the infection oriented do shockwave lithotripsy should go home with antibiotics and pain medicine we can see her next week to get a KUB and probably plan for second stage ESWL
--- NOTE | 2020-06-09 11:40 | DCINST_ITS ---
Discharge Diet: Light diet - advance as tolerated Discharge Activity: Return to Normal Activity Call your doctor if you observe: Fever of 101 or Higher Suture Line Care: Avoid Pulling/Pushing, Avoid Pinching/Bending Allergies/Adverse Reactions: Allergies bacitracin [From Neosporin ([id number]-dtz-[id number])] Allergy (Verified 06/09/20 10:26) Hives minocycline Allergy (Verified 06/09/20 10:26) Hives neomycin [From Neosporin ([id number]-iqa-zqlfd)] Allergy (Verified 06/09/20 10:26) Hives polymyxin B [From Neosporin (hmf-tus-ygtuo)] Allergy (Verified 06/09/20 10:26) Hives Medications to take at Discharge Fluoxetine [Prozac] 20 mg PO DAILY 06/01/20 Ciprofloxacin [Cipro] 500 mg PO BID #14 tablet 06/03/20 Acetaminophen 325 mg PO PRN PRN 06/04/20 Ibuprofen 200 mg PO PRN PRN 06/04/20 Orders to be completed after discharge: Abdomen Single View [RAD] Time Frame: 06/09/20, Facility: [facility], Location: [facility] Primary Care Physician: Shad Diaz MD [Primary Care Provider] - Test Results: Test results from this visit will be discussed in further detail at your follow- up appointment, if applicable. Please Follow Up With: Jacobo Petty MD When: please call to make an appointment.
[2020-06-09] MEDS: Cefazolin 2 GM in 0.9% Normal Saline 100 ML IV (11:42)
--- NOTE | 2020-06-09 12:35 | OP.PCM_ITS ---
Problem List (1) Left renal stone Status: Acute Report of Operation Date of Procedure: 06/09/20 Pre-Operative Diagnosis: Left large renal calculus Post-Operative Diagnosis: Same Surgery/Procedure Performed:: Stage I ESWL Description of Surgical Findings:: Patient presents to the hospital for treatment of a kidney stone with shockwave lithotripsy. In the preoperative area and x-ray was done to confirm the location of the stone. The x-ray was reviewed and the stone location was reviewed. In the preoperative setting I spoke with the patient regarding the treatment of the stone how the treatment would be conducted and the expectations after surgery. The patient understands there is a risk of bleeding and infection. Also discussed the very rare risk of hematoma or damage to the k idney. We also discussed the risk that the shockwave machine will fail to break the stone adequately and that the patient may need other surgical procedures. We also discussed the possibility that the patient may need a stent after the procedure. After reviewing the procedure with the patient, the patient is signed the consent form all the patient's questions were addressed and was taken back to the operating room for treatment of a kidney stone. Patient was taken back to the operating room, patient was identified by the nursing staff, we identified the side of the treatment and the patient side of treatment had been marked by my initials. The patient underwent general anesthetic and was placed supine on the lithotripter table. We then used fluoroscopy to identify the stone on the Left side. We then positioned the patient under the lithotripter and we used triangulation technique to identify the location of the stone and then we made sure that the stone was engaged in the F2 focal point of F2 Donier lithoprior machine. Once the patient was positioned appropriately and the stone was identified and placed in the F2 focal point of the lithotripter machine we then proceeded with shockwave lithotripsy. In the beginning the shockwave was delivered at a rate of 90 shocks per minute, we monitor the EKG for any ectopy. The power was slowly increased to 5 kV and subsequently at the 7 kV. We then proceeded with the treatment we move the therapy had around during the treatment to make sure the stone stayed in the F2 focal point during the entire treatment. Once the stone had broken up completely then we stopped the treatment a total of about 3000 shockwaves were delivered to the stone under fluoroscopic guidance. At this point the patient's anesthetic was reversed patient was extubated and taken back to the PACU in stable condition. The patient was given instructions to call the office to make an a follow-up appointment. Type of Anesthesia:: General - Complications May need 2nd treatment for large stone Broke up well but still has some fragments
[2020-06-09 12:44] VITALS: BP 134/76; BP 142/68; PULSE 68; RESP 18; TEMP 36.7; O2SAT 95
[2020-06-09 13:00] VITALS: BP 126/76; BP 134/76; PULSE 60; RESP 16; O2SAT 96
[2020-06-09 13:15] VITALS: BP 130/79; BP 134/76; PULSE 56; RESP 16; O2SAT 98
[2020-06-09 13:20] VITALS: BP 130/86; BP 134/76; PULSE 59; RESP 16; TEMP 36.6; O2SAT 99
[2020-06-09 14:09] VITALS: BP 134/73; BP 134/76; PULSE 60; RESP 16; TEMP 36.8; O2SAT 97
== END 2020-06-09 14:25 | disposition home or self-care (01) ==
LOC: SDC 09:20 → AC 09:22
PROVIDERS: PCP Family Medicine; Referring Provider Urology; Visit Provider Urology
PROC: (CPT 50590; principal; 2020-06-09 11:25)
DX: N20.0 Calculus of kidney (principal)
CPT/HCPCS: 00873; 50590; 74018; J7120; J2405

== ENCOUNTER → 2020-06-15 08:02 | Outpatient (CLI) | payer OTHER, SELFPAY ==
[2020-06-09 10:19] VITALS: BMI 37.7
--- NOTE | 2020-06-15 08:07 | RAD_ITS ---
INDICATION: CALCULUS OF KIDNEY EXAMINATION/TECHNIQUE: X-RAY - XR Abdomen 1 View COMPARISON: 06/09/2020 FINDINGS: There is a moderate amount of colonic fecal material. The left-sided double-J stent catheter is seen with the proximal tip in the left renal pelvis and the distal tip in the left side of the bladder. The previously described staghorn calculus in the left kidney has decreased in size and now measures approximately 3 x 2.2 cm, previously 5 x 2 cm. It is now only involving the left lower pole calyx. Tubal ligation clips are seen in the pelvis. Normal visualized osseous structures. RAD/Abdomen Single View IMPRESSION: Interval decrease in size of left-sided staghorn calculus now only in the left lower pole calyx. Otherwise, no change since prior. Electronically Signed: Jeyson Longoria MD at 23:43 EDT Tel , Service support ,
== END ==
PROVIDERS: PCP Family Medicine; Referring Provider Urology; Visit Provider Urology
DX: N20.0 Calculus of kidney (principal)
CPT/HCPCS: 74018

== ENCOUNTER 2020-06-25 06:43 | Day surgery (SDC) | payer OTHER, SELFPAY ==
--- NOTE | 2020-06-17 10:57 | NURSING ---
patient had moderna vaccine x2 last dose 04/21/20
[2020-06-25] VITALS (7 sets, daily range): BP systolic 108–126; BP diastolic 66–84; PULSE 59–80; RESP 16–18; TEMP 36–36.8; O2SAT 93–99; BMI 38.2
--- NOTE | 2020-06-25 06:48 | RAD_ITS ---
STUDY: X-RAY - ABDOMEN/PELVIS REASON FOR EXAM: Female, 40 years old patient with left-sided kidney stone. Study is for preoperative evaluation. TECHNIQUE: Two AP supine views of the abdomen and pelvis. COMPARISON: CT abdomen and pelvis dated 06/01/2020. FINDINGS: The lung bases are not imaged. There is an unremarkable bowel gas pattern. There is a left-sided ureteral stent. There are multiple calcifications visible left renal collecting system. Tubal ligation clips are visible in the pelvis. Normal soft tissue structures. Normal visualized osseous structures. RAD/Abdomen Single View IMPRESSION: Left-sided ureteral stent with multiple calculi in the left renal collecting system. Electronically Signed: Rebecca Montejo MD at 7:50 EDT , Service support ,
--- NOTE | 2020-06-25 08:28 | HP.PCM_ITS ---
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 She understands is possible we may do a final ureteroscopy and laser of fragments and she has a stent in place and very likely we can leave the stent in after the second treatment. Past Medical History Allergies bacitracin [From Neosporin ([id number]-lik-gcfip)] Allergy (Verified 06/25/20 07:27) Hives minocycline Allergy (Verified 06/25/20 07:27) Hives neomycin [From Neosporin (thu-gfn-rihar)] Allergy (Verified 06/25/20 07:27) Hives polymyxin B [From Neosporin (pwo-xop-brrnu)] Allergy (Verified 06/25/20 07:27) Hives Home Medications: Ambulatory Orders Medication Instructions Recorded Fluoxetine [Prozac] 20 mg PO DAILY 06/01/20 Ciprofloxacin [Cipro] 500 mg PO BID #14 tablet 06/03/20 Acetaminophen 325 mg PO PRN PRN 06/04/20 Ibuprofen 200 mg PO PRN PRN 06/04/20 Albuterol IH (ProAir) [Proair Hfa 1 puff INHALATION Q4H PRN PRN 06/17/20 (SP)Vent Pts] Surgical History: - - C section Psychiatric History: No pertinent psych hx 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 Smoking Status: Never smoker Tobacco Use: Non-smoker - *Family History Maternal History Items: No pertinent history Review of Systems Constitutional: Denies: Chills, Fever, Weight Change HEENT: Denies: Head Aches, Sinus Congestion, Sinus Drainage Cardiovascular: Denies: Chest Pain, Palpitations Respiratory: Denies: Cough, Shortness of breath at rest, Sputum production Gastrointestinal: Denies: Abdominal Pain, Nausea, Vomiting Genitourinary: Denies: Dysuria Musculoskeletal: Denies: Joint Pain, Joint Tenderness Skin: Denies: Rash, Wounds Neurological: Denies: Numbness, Tingling, Focal weakness Psychiatric: Denies: Anxiety, Depression, Homicidal Ideations, Suicidal Ideations Hematologic/ Lymphatic: Denies: Easy Bruising, Easy Bleeding VTE Information - Inpt Only VTE Present on Admission: No VTE Mechan Device Prophylaxis: SCD's - Physical Exam Vitals/I&O's: Vital Signs Temp Pulse Resp BP Pulse Ox 98.3 F 73 16 126/70 H 97 06/25/20 07:28 06/25/20 07:28 06/25/20 07:28 06/25/20 07:28 06/25/20 07:28 Oxygen Delivery Method Room Air Weight: 110.8 kg Body Mass Index (BMI) 38.2 General: Alert, Oriented x3, Cooperative HEENT: Atraumatic, PERRLA, EOMI, Normocephalic Neck: Supple, No JVD, Negative Carotid Bruits Lungs: Clear to auscultation, Normal air movement Cardiovascular: Regular rate, No murmurs Abdomen: Bowel Sounds Present, Soft, Non Tender Extremities: No edema, Capillary Refill Less than 3 Seconds Skin: No rashes, No breakdown Musculoskeletal: No Tenderness to Palpation of Joints or Extremities Neurological: Cranial nerves II-XII grossly intact Psych/Mental Status: Normal Affect, Appropriate Current Medications Cefazolin Sodium 2 gm/ Sodium (Chloride) 110 mls @ 150 mls/hr IV PREOP ONE Stop: 06/25/20 09:33 Assessment/Plan All Active Problems Sepsis (Acute) Left renal stone (Acute) Plan for second stage shockwave lithotripsy of large left staghorn calculus.
--- NOTE | 2020-06-25 08:34 | PCM.DC.URO ---
Discharge Diet: Light diet - advance as tolerated Discharge Activity: Return to Normal Activity Call your doctor if your incision/area has: Sudden Increased Bleeding Allergies/Adverse Reactions: Allergies bacitracin [From Neosporin ([id number]-ngj-urxjt)] Allergy (Verified 06/25/20 07:27) Hives minocycline Allergy (Verified 06/25/20 07:27) Hives neomycin [From Neosporin ([id number]-kzl-lngfi)] Allergy (Verified 06/25/20 07:27) Hives polymyxin B [From Neosporin (zee-scy-jfeuj)] Allergy (Verified 06/25/20 07:27) Hives Medications to take at Discharge Fluoxetine [Prozac] 20 mg PO DAILY 06/01/20 Ciprofloxacin [Cipro] 500 mg PO BID #14 tablet 06/03/20 Acetaminophen 325 mg PO PRN PRN 06/04/20 Ibuprofen 200 mg PO PRN PRN 06/04/20 Albuterol IH (ProAir) [Proair Hfa (SP)Vent Pts] 1 puff INHALATION Q4H PRN PRN 06/17/20 Ciprofloxacin [Cipro] 500 mg PO BID #6 tab 06/25/20 Hydrocodone Bitart/Apap 5-325 [[place] 5MG-325MG] 1 tablet PO Q4H PRN PRN 7 Days #14 tab 06/25/20 The following prescriptions were given: Ciprofloxacin [Cipro] 500 mg PO BID #6 tab Transmission Status: Pending to [facility] Hydrocodone Bitart/Apap 5-325 [[place] 5MG-325MG] 1 tablet PO Q4H PRN PRN 7 Days #14 tab PRN Reason: Pain Transmission Status: Sent to [facility] Primary Care Physician: Shad Diaz MD [Primary Care Provider] - Test Results: Test results from this visit will be discussed in further detail at your follow-up appointment, if applicable.
--- NOTE | 2020-06-25 08:37 | DCINST_ITS ---
Discharge Diet: Light diet - advance as tolerated Discharge Activity: Return to Normal Activity Allergies/Adverse Reactions: Allergies bacitracin [From Neosporin (crt-whz-gfjgo)] Allergy (Verified 06/25/20 07:27) Hives minocycline Allergy (Verified 06/25/20 07:27) Hives neomycin [From Neosporin (apz-enq-qdtve)] Allergy (Verified 06/25/20 07:27) Hives polymyxin B [From Neosporin (ejy-nfs-uqnkx)] Allergy (Verified 06/25/20 07:27) Hives Medications to take at Discharge Fluoxetine [Prozac] 20 mg PO DAILY 06/01/20 Ciprofloxacin [Cipro] 500 mg PO BID #14 tablet 06/03/20 Acetaminophen 325 mg PO PRN PRN 06/04/20 Ibuprofen 200 mg PO PRN PRN 06/04/20 Albuterol IH (ProAir) [Proair Hfa (SP)Vent Pts] 1 puff INHALATION Q4H PRN PRN 06/17/20 Ciprofloxacin [Cipro] 500 mg PO BID #6 tab 06/25/20 Hydrocodone Bitart/Apap 5-325 [[place] 5MG-325MG] 1 tablet PO Q4H PRN PRN 7 Days #14 tab 06/25/20 The following prescriptions were given: Ciprofloxacin [Cipro] 500 mg PO BID #6 tab Transmission Status: Sent to [facility] Hydrocodone Bitart/Apap 5-325 [[place] 5MG-325MG] 1 tablet PO Q4H PRN PRN 7 Days #14 tab PRN Reason: Pain Transmission Status: Received by [facility] Primary Care Physician: Shad Diaz MD [Primary Care Provider] - Test Results: Test results from this visit will be discussed in further detail at your follow- up appointment, if applicable. Please Follow Up With: Jacobo Petty MD When: appt 06/28 at 9am, get Xray in [facility] right before
[2020-06-25] MEDS: Cefazolin 2 GM in 0.9% Normal Saline 100 ML IV (08:41)
--- NOTE | 2020-06-25 09:30 | OP.PCM_ITS ---
Problem List (1) Left renal stone Status: Acute Report of Operation Date of Procedure: 06/25/20 Pre-Operative Diagnosis: Left staghorn calculus second stage treatment Post-Operative Diagnosis: Same Surgery/Procedure Performed:: Left extracorporeal shockwave lithotripsy second stage treatment Description of Surgical Findings:: Patient presents to the hospital for treatment of a kidney stone with shockwave lithotripsy. In the preoperative area and x-ray was done to confirm the location of the stone. The x-ray was reviewed and the stone location was reviewed. In the preoperative setting I spoke with the patient regarding the treatment of the stone how the treatment would be conducted and the expectations after surgery. The patient understands there is a risk of bleeding and inf ection. Also discussed the very rare risk of hematoma or damage to the kidney. We also discussed the risk that the shockwave machine will fail to break the stone adequately and that the patient may need other surgical procedures. We also discussed the possibility that the patient may need a stent after the procedure. After reviewing the procedure with the patient, the patient is signed the consent form all the patient's questions were addressed and was taken back to the operating room for treatment of a kidney stone. Patient was taken back to the operating room, patient was identified by the nursing staff, we identified the side of the treatment and the patient side of treatment had been marked by my initials. The patient underwent general anesthetic and was placed supine on the lithotripter table. We then used fluoroscopy to identify the stone stones in the left side. She had multiple fragments that were now present in the lower pole of the left kidney from prior treatment still many large fragments. We then positioned the patient under the lithotripter and we used triangulation technique to identify the location of the stone and then we made sure that the stone was engaged in the F2 focal point of F2 Donier lithoprior machine. Once the patient was positioned appropriately and the stone was identified and placed in the F2 focal point of the lithotripter machine we then proceeded with shockwave lithotripsy. In the beginning the shockwave was delivered at a rate of 90 shocks per minute, we monitor the EKG for any ectopy. The power was slowly increased to 5 kV and subsequently at the 7 kV. We then proceeded with the treatment we move the therapy had around during the treatment to make sure the stone stayed in the F2 focal point during the entire treatment. Once the stone had broken up completely then we stopped the treatment a total of about 3000 shockwaves were delivered to the stones under fluoroscopic guidance. At this point the patient's anesthetic was reversed patient was extubated and taken back to the PACU in stable condition. The patient was given instructions to call the office to make an a follow-up appointment. Type of Anesthesia:: General Drains: stent in placement - Admit VTE Documentation VTE Present on Admission: No VTE Mechan Device Prophylaxis: SCD's
[2020-06-25] MEDS: Ketorolac 15 MG/ML Vial IV (10:00)
[2020-06-25] MEDS: Lactated Ringers 1,000 ML 75 ML IV (10:01)
== END 2020-06-25 11:15 | disposition home or self-care (01) ==
LOC: SDC 06:44 → AC 06:45
PROVIDERS: PCP Family Medicine; Referring Provider Urology; Visit Provider Urology
PROC: (CPT 50590; principal; 2020-06-25 08:50)
DX: N20.0 Calculus of kidney (principal)
CPT/HCPCS: 00872; 50590; 74018; J7120; J2405

== ENCOUNTER → 2020-06-28 08:56 | Outpatient (CLI) | payer OTHER, SELFPAY ==
[2020-06-25 07:28] VITALS: BMI 38.2
--- NOTE | 2020-06-28 09:00 | RAD_ITS ---
STUDY: X-RAY - ABDOMEN/PELVIS REASON FOR EXAM: Female, 40 years old. Postop pain TECHNIQUE: Single AP view of the abdomen / pelvis. COMPARISON: 06/25/2020 FINDINGS: Stable appearance of a left-sided JJ stent. Stable calcifications in the lower pole of the left kidney. No calcifications noted along the course of the left stent. Stable calcifications in the right pelvis There is an unremarkable bowel gas pattern. There is no demonstrated free abdominal air. The visualized liver, spleen and kidneys are grossly normal in size and morphology. Normal soft tissue structures. Normal visualized osseous structures. RAD/Abdomen Single View IMPRESSION: No interval change Electronically Signed: Maged Carroll MD at 13:21 EDT , Service support ,
== END ==
PROVIDERS: PCP Family Medicine; Referring Provider Urology; Visit Provider Urology
DX: G89.18 Other acute postprocedural pain (principal)
CPT/HCPCS: 74018

== ENCOUNTER 2020-06-30 06:30 | Day surgery (SDC) | payer OTHER, SELFPAY ==
[2020-06-25 07:28] VITALS: BMI 38.2
[2020-06-30] VITALS (7 sets, daily range): BP systolic 111–139; BP diastolic 63–81; PULSE 60–71; RESP 16; TEMP 36.6–36.8; O2SAT 93–100; BMI 38.3
[2020-06-30] MEDS: Lactated Ringers 1,000 ML 100 ML IV (07:18)
[2020-06-30] MEDS: Cefazolin 2 GM in 0.9% Normal Saline 100 ML IV (08:56)
--- NOTE | 2020-06-30 08:58 | HP.PCM_ITS ---
Problem List (1) Left renal stone Status: Acute History of Present Illness Date of Admission: 06/30/20 Chief Complaint: Large left staghorn calculus The patient is a 40 year old female with a large stone in the left kidney she has had 2 lithotripsy treatments at this point were in a proceed with ureteroscopy to make sure all the major stones are broken up laser any remaining fragments and then remove the stent. Past Medical History Allergies bacitracin [From Neosporin ([id number])] Allergy (Verified 06/28/20 11:19) Hives minocycline Allergy (Verified 06/28/20 11:19) Hives neomycin [From Neosporin (bse-qts-nwdxn)] Allergy (Verified 06/28/20 11:19) Hives polymyxin B [From Neosporin (xzn-hja-tvxey)] Allergy (Verified 06/28/20 11:19) Hives Home Medications: Ambulatory Orders Medication Instructions Recorded Fluoxetine [Prozac] 20 mg PO DAILY 06/01/20 Ciprofloxacin [Cipro] 500 mg PO BID #14 tablet 06/03/20 Acetaminophen 325 mg PO PRN PRN 06/04/20 Ibuprofen 200 mg PO PRN PRN 06/04/20 Albuterol IH (ProAir) [Proair Hfa 1 puff INHALATION Q4H PRN PRN 06/17/20 (SP)Vent Pts] Hydrocodone Bitart/Apap 5-325 1 tablet PO Q4H PRN PRN 7 Days #14 06/25/20 [[place] 5MG-325MG] tab Surgical History: - - C section Psychiatric History: No pertinent psych hx 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 Smoking Status: Never smoker Tobacco Use: Non-smoker - *Family History Maternal History Items: No pertinent history Review of Systems Constitutional: Denies: Chills, Fever, Weight Change HEENT: Denies: Head Aches, Sinus Congestion, Sinus Drainage Cardiovascular: Denies: Chest Pain, Palpitations Respiratory: Denies: Cough, Shortness of breath at rest, Sputum production Gastrointestinal: Denies: Abdominal Pain, Nausea, Vomiting Genitourinary: Denies: Dysuria Musculoskeletal: Denies: Joint Pain, Joint Tenderness Skin: Denies: Rash, Wounds Neurological: Denies: Numbness, Tingling, Focal weakness Psychiatric: Denies: Anxiety, Depression, Homicidal Ideations, Suicidal Ideations Hematologic/ Lymphatic: Denies: Easy Bruising, Easy Bleeding VTE Information - Inpt Only VTE Present on Admission: No - Physical Exam Vitals/I&O's: Vital Signs Temp Pulse Resp BP Pulse Ox 98.2 F 66 16 136/76 H 99 06/30/20 07:04 06/30/20 07:04 06/30/20 07:04 06/30/20 07:04 06/30/20 07:04 Oxygen Delivery Method Room Air Weight: 111 kg Body Mass Index (BMI) 38.3 General: Alert, Oriented x3, Cooperative HEENT: Atraumatic, PERRLA, EOMI, Normocephalic Neck: Supple, No JVD, Negative Carotid Bruits Lungs: Clear to auscultation, Normal air movement Cardiovascular: Regular rate, No murmurs Abdomen: Bowel Sounds Present, Soft, Non Tender Extremities: No edema, Capillary Refill Less than 3 Seconds Skin: No rashes, No breakdown Musculoskeletal: No Tenderness to Palpation of Joints or Extremities Neurological: Cranial nerves II-XII grossly intact Psych/Mental Status: Normal Affect, Appropriate Current Medications Lactated Ringer's () 1,000 mls @ 100 mls/hr IV .Q10H REA Last Admin: 06/30/20 07:18 Dose: 100 mls/hr Documented by: Assessment/Plan All Active Problems Sepsis (Acute) Left renal stone (Acute) 40-year-old female very large stone in the left kidney we have undergoing staged procedures she has completed 2 shockwave lithotripsies at this point we can proceed with ureteroscopy laser lithotripsy and stent removal
[2020-06-30] MEDS: Ketorolac 15 MG/ML Vial IV (09:02)
--- NOTE | 2020-06-30 09:02 | DCINST_ITS ---
Discharge Diet: Light diet - advance as tolerated Discharge Activity: Return to Normal Activity, May Not Drive - for 2 days. Additional Activity Instructions:: Please be aware that pain medications may cause nausea. You should typically eat light foods as you take your pain medication. Pain medication may cause constipation, if this is a problem for you, please discuss with your doctor. Allergies/Adverse Reactions: Allergies bacitracin [From Neosporin ([id number])] Allergy (Verified 06/28/20 11:19) Hives minocycline Allergy (Verified 06/28/20 11:19) Hives neomycin [From Neosporin ([id number])] Allergy (Verified 06/28/20 11:19) Hives polymyxin B [From Neosporin ([id number]-yvd-[id number])] Allergy (Verified 06/28/20 11:19) Hives Medications to take at Discharge Fluoxetine [Prozac] 20 mg PO DAILY 06/01/20 Ciprofloxacin [Cipro] 500 mg PO BID #14 tablet 06/03/20 Acetaminophen 325 mg PO PRN PRN 06/04/20 Ibuprofen 200 mg PO PRN PRN 06/04/20 Albuterol IH (ProAir) [Proair Hfa (SP)Vent Pts] 1 puff INHALATION Q4H PRN PRN 06/17/20 Hydrocodone Bitart/Apap 5-325 [[place] 5MG-325MG] 1 tablet PO Q4H PRN PRN 7 Days #14 tab 06/25/20 Ciprofloxacin [Cipro] 500 mg PO BID #6 tab 06/30/20 Hydrocodone Bitart/Apap 5-325 [[place] 5MG-325MG] 1 tablet PO Q4H PRN PRN 7 Days #14 tablet 06/30/20 The following prescriptions were given: Ciprofloxacin [Cipro] 500 mg PO BID #6 tab Transmission Status: Pending to [facility] Hydrocodone Bitart/Apap 5-325 [[place] 5MG-325MG] 1 tablet PO Q4H PRN PRN 7 Days #14 tablet PRN Reason: Pain Transmission Status: Sent to [facility] Primary Care Physician: Shad Diaz MD [Primary Care Provider] - Test Results: Test results from this visit will be discussed in further detail at your follow- up appointment, if applicable. Please Follow Up With: Jacobo Petty MD When: in 2 weeks, please call to make an appointment.
--- NOTE | 2020-06-30 09:34 | OP.PCM_ITS ---
Problem List (1) Left renal stone Status: Acute Report of Operation Date of Procedure: 06/30/20 Pre-Operative Diagnosis: Left renal calculi large staghorn stone status post 2 shockwave lithotripsy treatments Post-Operative Diagnosis: Same Surgery/Procedure Performed:: Cystoscopy, left retrograde pyelogram, balloon dilation, left ureteroscopy laser of stone fragments in the kidney final stage, and stent removal Description of Surgical Findings:: This is a patient who presents to the hospital for treatment for multiple left renal calculi she is undergone 2 shockwave lithotreatments for a very large staghorn calculi and now presents for final stage for ureteroscopy and laser of any remaining large fragments and stent removal.. I discussed with the patient how the surgery would be performed and we reviewed the risks and benefits of the surgery. The risk and benefits include the risk of failure to remove the stone completely and that the patient may need multiple procedures. We discussed the risk of an infection, the risk of bleeding. We discussed the very rare risk of serious complicated injury to the ureter. The patient understands that if the stone is not able to be removed safely that we may abort the procedure and place a stent. After full discussion and all questions address with the patient the consent form was signed the side was marked appropriately and the patient was taken back to the operating room for the procedure. The patient was taken back to the operating room. After induction of anesthesia by the anesthesiology team the patient was placed in dorsolithotomy position. The genitals were prepped and draped in usual sterile fashion. I went into the bladder with a 21 [place] rigid cystourethroscope through the urethra. Upon entering the bladder I inspected the trigone the left and right ureteral orifice and the bladder itself. I then removed the existing left ureteral stent. I then cannulated the left ureteral orifice and advanced a 0.038 Glidewire up into the kidney. Then over the Glidewire I advanced a 5 Fr Ureteral catheter and performed a retrograde pyelogram with about 10cc of contrast, to delineate the anatomy and identify the stone location. I then placed a second 0.038 Guidewire as a working wire and over the working 0.038 guidewire and over the Glidewire place an access sheath into the left kidney and then I went in with a Flexible 7.9fr ureteroscope. I was able to go inside with the 7.9Fr flexible utereroscope and I pulled out the working guidewire and then through the 7.9 fr flexible ureteroscope I ascended up the ureter with direct visualization until the stones was located in the lower poles of the left kidney, then I engaged the stones fragments with laser lithotripsy using a 270miron laser fiber with energy setting of 6 Hertz and 0.6 J until the stone was lasered into tiny little pieces that should pass on their own. After successful laser lithotripsy of the remaining stone fragements, a retrograde pyelogram was performed with 10cc of contrast and no extravasation of contrast or perforation was identified in the ureter. I then backed out of the ureter. I then drained the patient's bladder and the cystoscope was removed and the patient was taken back to the recovery room in good position. The patient was given discharge instructions to call the office for instructions on when to come to the office for a follow-up appointment.. No stent was left. Type of Anesthesia:: General Drains: non stent - Admit VTE Documentation VTE Present on Admission: No VTE Mechan Device Prophylaxis: SCD's
[2020-06-30] MEDS: oxyCODONE 5 MG Tablet PO (11:04)
== END 2020-06-30 11:46 | disposition home or self-care (01) ==
LOC: SDC 06:30 → AC 06:31
PROVIDERS: PCP Family Medicine; Referring Provider Urology; Visit Provider Urology
PROC: 0TJ98ZZ Inspection of Ureter, Via Natural or Artificial Opening Endoscopic (ICD-10-PCS; CPT 52352; principal; 2020-06-30 08:40)
DX: N20.0 Calculus of kidney (principal)
CPT/HCPCS: 52310; 52344; 52353; 76000; J7120; C1894; J2405

== ENCOUNTER → 2020-07-19 10:31 | Outpatient (CLI) | payer OTHER, SELFPAY ==
[2020-06-30 07:04] VITALS: BMI 38.3
--- NOTE | 2020-07-19 10:35 | RAD_ITS ---
INDICATION: Calculus of ureter EXAMINATION/TECHNIQUE: X-RAY - XR Abdomen 1 View COMPARISON: 06/28/2020. FINDINGS: BOWEL GAS PATTERN: Non-obstructive. No bowel or stomach distention. FREE AIR: Not assessed on a single supine view. ORGANOMEGALY: Not seen. CALCIFICATIONS: Multiple calcifications project over the left kidney. LOWER CHEST: No acute pathology. BONES AND SOFT TISSUES: No acute pathology. OTHER: Interval removal of left-sided nephroureteral stent. RAD/Abdomen Single View IMPRESSION: Multiple calcifications project over the left kidney. No ureteral calcifications seen. Electronically Signed: Jeyson Longoria MD at 18:27 EDT Tel , Service support ,
== END ==
PROVIDERS: PCP Family Medicine; Referring Provider Urology; Visit Provider Urology
DX: N20.1 Calculus of ureter (principal)
CPT/HCPCS: 74018

== ENCOUNTER → 2020-07-21 | Outpatient (CLI) | payer OTHER, SELFPAY ==
[2020-06-30 07:04] VITALS: BMI 38.3
[2020-07-26 13:01] LABS: HPV Reflexed? NOT INDICATED
== END | disposition home or self-care (01) ==
LOC: LABSPEC 13:58
PROVIDERS: PCP Family Medicine; Visit Provider Obstetrics & Gynecology
DX: Z12.4 Encounter for screening for malignant neoplasm of cervix (principal)
CPT/HCPCS: 88175; G0145

== ENCOUNTER → 2020-08-05 14:23 | Outpatient (CLI) | payer OTHER, SELFPAY ==
[2020-06-30 07:04] VITALS: BMI 38.3
--- NOTE | 2020-08-05 | EMB_PTH ---
PATIENT: ZULEYKA BUI LOC: [facility] U#:[id number] AGE/SX: 45/F ROOM: RE08/05/[address]: Dr. Shad Bliss MD : 1980 BED: DIS: SPEC #: [id number] RECD: 08/05/20 15:40 STATUS: ZULEYMA REQ #: [id number] DERIC: 08/05/20 00:[address]: Shad Bliss DEPT: SURGICAL PATHOLOGY RECD BY: Mahnaz Cheema ENTERED: 08/06/20 08:28 SP TYPE: ENDOM BX/C BETTY DR: Dr. Shad Diaz MD Tissues: Endometrium, NOS Procedures: Surgery Specimen Level IV HEADER OPERATION: Endometrial biopsy PRE-OP DIAGNOSIS: Abnormal uterine bleeding N93.9 TISSUE SUBMITTED: Endometrial biopsy MICROSCOPIC DIAGNOSIS Endometrial biopsy: Proliferative endometrium with glandular and stromal breakdown. SJ:marlene 08/09/2020 MICROSCOPIC DESCRIPTION Slides are reviewed. GROSS DESCRIPTION Received in fixative is one container labeled with the patient's name and designated endometrial biopsy. The specimen consists of multiple irregular and elongated fragments of red-jackson soft tissue that in aggregate measure 2.5 x 1 x 0.1 cm. The specimen is totally submitted in one cassette. / AM:marlene 08/06/20 TC:5 CPT: 98438
== END ==
PROVIDERS: PCP Family Medicine; Visit Provider Obstetrics & Gynecology
DX: N93.9 Abnormal uterine and vaginal bleeding, unspecified (principal)
CPT/HCPCS: 88305

== ENCOUNTER → 2020-09-17 12:05 | Outpatient (CLI) | payer OTHER, SELFPAY ==
[2020-06-30 07:04] VITALS: BMI 38.3
[2020-09-17 15:13] LABS: Basophil# 0.04 X10^3/uL; Basophil% 0.5 % (0-1); Eosinophil# 0.13 X10^3/uL; Eosinophils% 1.7 % (0-5); Hematocrit 40.9 % (37-47); Hemoglobin 13.2 g/dL (12.0-15.0); Lymphocyte % 24.9 % (19-41); Mean Corp Hgb Conc 32.3 g/dL (32-36); Mean Corpuscular Hgb 31.2 pg (27.0-32.0); Mean Corpuscular Volume 96.7 fL (81-99); Monocyte# 0.53 X10^3/uL; Monocyte% 6.9 % (0-10); NRBC Flagged by Analyzer 0 % (0-5); Neutrophil # 5.02 X10^3/uL (2.7-7.7); Neutrophil % 65.7 % (47-70); Platelet Count 331 K/mm3 (150-450); RBC Distribution Width CV 13.5 % (11.6-14.6); RBC Distribution Width SD 47.9 fl (35.1-43.9); Red Blood Count 4.23 M/mm3 (4.2-5.4); White Blood Count 7.6 K/mm3 (4.4-11.0)
[2020-09-17 15:34] LABS: ALB/GLOB Ratio 1.1 RATIO (0.9-2.4); AST(SGOT) 14 U/L (15-37); Alanine Aminotransfer ALT/SGPT 24 U/L (13-56); Albumin, Serum 3.8 g/dL (3.2-5.0); Alkaline Phosphatase 74 U/L (45-117); Anion Gap 5 (5-15); BUN 17 mg/dL (7-18); BUN/Creat Ratio 21.6 RATIO (10-20); Calcium,Total 8.9 mg/dL (8.5-10.1); Chloride 109 mmol/L (98-107); Cholesterol 183 mg/dL (200); Creatinine, Serum 0.79 mg/dL (0.55-1.02); EST Glomerular Filtration Rate 85 mL/min (>60); Est Glom Filt Rate - Afr Amer 103 mL/min (>60); Globulin 3.5 g/dL (2.2-4.2); Glucose 95 mg/dL (74-106); High Density Lipoprotein 54 mg/dL; Protein, Total 7.3 g/dL (6.4-8.2); Sodium Level 140 mmol/L (136-145); Thyroid Stim Hormone (TSH) 0.69 uIU/mL (0.358-3.74); Triglycerides 53 mg/dL; Very Low Density Lipoprotein 11 mg/dL (5-40)
[2020-09-17 15:47] LABS: Vitamin D,25 Hydroxy 17.4 ng/mL
== END ==
PROVIDERS: PCP Family Medicine; Visit Provider Family Medicine
DX: E66.9 Obesity, unspecified (principal); E78.00 Pure hypercholesterolemia, unspecified; E55.9 Vitamin D deficiency, unspecified
CPT/HCPCS: 36415; 80053; 80061; 82306; 84443; 85025

== ENCOUNTER 2020-11-01 08:33 | Day surgery (SDC) | payer OTHER, SELFPAY ==
[2020-06-30 07:04] VITALS: BMI 38.3
[2020-10-27 17:08] LABS: Hematocrit 41.6 % (37-47); Hemoglobin 13.5 g/dL (12.0-15.0); Mean Corp Hgb Conc 32.5 g/dL (32-36); Mean Corpuscular Hgb 31.7 pg (27.0-32.0); Mean Corpuscular Volume 97.7 fL (81-99); Mean Platelet Vol. 9.4 fl (6.2-12.0); Platelet Count 298 K/mm3 (150-450); RBC Distribution Width SD 46.5 fl (35.1-43.9); Red Blood Count 4.26 M/mm3 (4.2-5.4); White Blood Count 9.9 K/mm3 (4.4-11.0)
[2020-10-27 17:18] LABS: Prothrombin Time (Protime)PT. 12.2 SECONDS (11.7-14.9)
[2020-10-27 17:19] LABS: Partial Thromboplast Time 31.7 Seconds (24.1-36.2)
--- NOTE | 2020-10-30 12:36 | HP.PCM_ITS ---
History and Physical Date of Admission: 11/01/20 Surgical History and Physical Keyana Floyd, a 40 year old female 2 0 0 0 2, presents for HTA, Hysteroscopy and D and C on November 01 at 8:45. --Menorrhagia --Heavy menses which began about a year ago. Keyana claims it started gradually It occurs with menses. It is located in the vagina. Severity is severe and worsening. Additional comments are: first 2 days of the cycle blood can drip on the floor. MEDICATIONS HISTORY: Current medications prescribed by our practice are: 1. Fluoxetine 20 Mg Capsule, One pill by mouth once a day Patient is also takin. metronidazole 0.75 % topical cream, prn 2. Vitamin D2 1,250 mcg (50,000 unit) capsule, One pill by mouth once a week ALLERGIES: Minocycline, Rash, Minocycline, Generalized rash, Neosporin and Rash Infections - Chicken pox and Pneumonia Illnesses - no serious past illnesses Accidents - no injuries of consequence Hospitalizations - Childbirth and see surgery Review of Systems: GENERAL - Denies fever, or chills SKIN - Denies skin changes EYES - Denies visual changes EARS - Denies difficulty hearing NOSE - Denies nasal congestion or bleeding MOUTH - Denies sore throat or difficulty swallowing NECK - Denies pain or swelling RESPIRATORY - Denies shortness of breath or wheezing CARDIOVASCULAR - Denies palpitations or chest pain GASTROINTESTINAL - Denies nausea, vomiting, diarrhea, constipation GENITOURINARY - Denies dysuria, frequency of urination, incontinence of urine MUSCULOSKELETAL - Denies joint or muscle pain NEUROLOGICAL - Denies localized numbness or weakness PSYCHIATRIC - Denies depression or anxiety ENDOCRINE - Denies heat or cold intolerance, weight loss or gain HEMATO-IMMUNOLOGIC - Denies excesive bleeding with cuts SOCIAL HISTORY: Alcohol Use - None Smoking - denies smoking Diet - balanced Diet and clean Lifestyle - Exercise - active Seat Belt Use - always Employer - [employer] Job Description - Registration Illicit Drug Use - denies use of street drugs Sexual Activity - Hours Worked - supervisor [employer] Spouse-Sig Other Name - ANT Spouse-Sig Other Occupation - [employer] Director Children Name(s) - Dmitriy Almeida Control - Prior Tubal FAMILY HISTORY: Maternal history of Breast cancer and Colon Cancer. Mother: Endometriosis, Diverticulitis and DM II. Father: DVT. Brother: DVT. Maternal Grandmother: Alzheimer s and Breast cancer. Maternal Grandfather: DM II. Paternal Grandfather: Moises petersen. MENSTRUAL HISTORY: LMP Known?- DefiniteAmount/Duration - 4-5 DAYS, Regularity - Regular, Frequency - monthly days, LMP - 10/02/20, Age Onset Menarche - 12 PAST PREGNANCIES: Total Pregnancies - 2; Full Term Pregnancies - 2; Premature - 0; Abortions, Induced - 0; Abortions, Spontaneous - 0; Ectopics - 0; Multiple Births - 0; Living Children - 2 SURGICAL HISTORY: 1. T and A as a child 2. 2006, Tubal 3. 07/03/2006 ; Lachelle Ruff M.D. 4. 03/01/2004 ; Lachelle Ruff M.D. 5. Dental Implant, 09/27/09 6. LEEP 1997 ; Lachelle Ruff M.D. 7. 05/2020 Lipotripsy x 2, Stent Placement ; Dr. Petty 8. 06/09/2020 ESWL left ; Jovanny' PHYSICAL EXAM BP- 148/80 Sitting, Right arm, regular cuff Weight- 240.64367 lbs Height- 67.50 inch BMI:37.1 CONSTITUTIONAL - NAD, well nourished, and well developed SKIN - No rash, lesions, or ulcers HEENT - Normocephalic, PERRLA, EOMI NECK - No nodes, no nuchal rigidity and thyroid normal size and texture LYMPH NODES - Palpation of lymph nodes in neck and groins within normal limits LUNGS - CTA x2 without wheezes, crackles or rales CARDIAC - Regular rate and rhythm without rubs, murmurs, or gallops BREAST - No dominant masses, no tenderness, no axillary adenopathy, no nipple discharge, no skin changes ABDOMEN - Without hepatosplenomegaly, distention, masses, rebound, or guarding; normal bowel sounds; no hernias EXTREMITIES - No edema or calf tenderness NEUROLOGICAL - Cranial nerves II-XII grossly intact PSYCHIATRIC - A and O to time, place, person, mood and affect External Genitial Vagina - non-tender without lesions Urethra/Urethral Meatus - non-tender Bladder - non-tender Vagina - vaginal streeter are pink and moist without loss of rugae and no evidence of atropy Cervix - without cervical motion tenderness and has normal size and features without evident lesions Uterus - 5-6 cm in size, mobile and nontender Adnexa - clear without massess or tenderness ASSESSMENT/PLAN: Premenopausal Menorrhagia Discussed treatment options at length and pt would like to proceed with HTA. Pamphlet given. Recent pelvic ultrasound and endometrial biopsy are okay. TFTs normal within the past year.
[2020-11-01] VITALS (10 sets, daily range): BP systolic 115–153; BP diastolic 76–115; PULSE 44–65; RESP 16–18; TEMP 36.3–37.1; O2SAT 94–98; BMI 37.8
[2020-11-01] MEDS: Lactated Ringers 1,000 ML 100 ML IV ×2 (09:52→14:07)
--- NOTE | 2020-11-01 10:15 | EMB_PTH ---
PATIENT: ZULEYKA BUI LOC: [facility] [place] U#:[id number] AGE/SX: 40/F ROOM: RE11/01/[address]: Dr. Shad Bliss MD : 1980 BED: DIS: 11/01/2020 SPEC #: [id number] RECD: 11/01/20 11:49 STATUS: ZULEYMA REPili #: [id number] DERIC: 11/01/20 10:[address]: Shad Bliss DEPT: SURGICAL PATHOLOGY RECD BY: Juwan Radford ENTERED: 11/01/20 12:47 SP TYPE: ENDOM BX/C OTHR DR: Dr. Shad Diaz MD Tissues: Endometrium, NOS Procedures: Surgery Specimen Level IV HEADER OPERATION: Hysteroscopy, D & C hydroablation PRE-OP DIAGNOSIS: Menorrhagia TISSUE SUBMITTED: Endometrial curettings MICROSCOPIC DIAGNOSIS Endometrial curettings: Proliferative endometrium with glandular and stromal breakdown. See comment. SJ:marlene 11/02/2020 COMMENT Please make reference to previous specimen ([id number]) endometrial biopsy with diagnosis of ?proliferative endometrium with glandular and stromal breakdown.? MICROSCOPIC DESCRIPTION Slides are reviewed. GROSS DESCRIPTION Received in fixative is one container labeled with the patient's name and designated endometrial curettings. The specimen consists of multiple irregular fragments of red-jackson soft tissue that in aggregate measure 3 x 1.5 x 0.1 cm. The specimen is totally submitted in one cassette. / AM:marlene 11/01/20 TC:5 CPT: 85563
[2020-11-01] MEDS: Cefotetan 2 GM in 0.9% NS 100 ML IV (10:27)
[2020-11-01] MEDS: Lubricating Jelly 60 GM Tube 30 GM TOPICAL (10:44)
--- NOTE | 2020-11-01 11:12 | OP.PCM_ITS ---
Report of Operation Date of Procedure: 11/01/20 Pre-Operative Diagnosis: Menorrhagia Post-Operative Diagnosis: Menorrhagia Surgery/Procedure Performed:: Diagnostic Hysteroscopy, Dilation and Curettage, Hydrothermal Ablation Description of Surgical Findings:: 8 cm endometrial cavity without polyps or fibroids present. Cervix high in vagina which would make robotic assisted vaginal hysterectomy necessary should hysterectomy ever be needed. Surgeon: Shad Bliss Type of Anesthesia: General (LMA) Anesthesiologist: Travon Pagan Specimen's removed: Endometrial curettings Estimated Blood Loss (mL): Minimal Fluids Replaced: Crystalloid Description of Procedure: Surgeon: Shad Bliss MD, FACOG Indication: This is a 40 year old patient who has been having problems with extremely heavy menses. Conservative measures have not been helpful. E ndometrial sampling was benign and pelvic ultrasound showed that ablation may be helpful. Pt has been counseled regarding the risks, benefits and alternatives of this procedure and all questions answered. She understands that only about half of patients will have amenorrhea after this procedure. Procedure: Patient taken to the operating room where after induction of general anesthesia the patient was prepped and draped in the usual sterile fashion. Bladder was drained of urine with a catheter. Anterior cervix grasped and cervix was dilated to about 17 [place] size. Hysteroscopic hydrothermal ablation (HTA) unit was place in the cervix and the above findings were noted. HTA unit was removed and the uterus was gently curretted removing all contents. An HTA ablation cycle was then carried out at about 90 degrees Centigrade for 10 minutes with virtually no fluid loss during the procedure. After an appropriate cool down the HTA unit was removed with minimal bleeding noted. The patient tolerated the procedure well and was taken to the recovery room in satisfactory condition. Sponge, instruments and needle counts were all correct. There were no apparent complications of the surgery. Cefotan 2 gms IV was given prior to the procedure. Grafts/Implants Used: None Complications None Admit VTE Documentation VTE Present on Admission: Yes
--- NOTE | 2020-11-01 11:15 | PCM.DC ---
Discharge Instructions Diet Discharge Diet: No restrictions Activity Discharge Activity: Return to Normal Activity, May Shower and May Take a Tub Bath May resume sexual activity in: 3 weeks Additional Activity Instructions:: Nothing in the vagina for 3-4 weeks please. Use Ibuprophen 800 mg orally every 8 hours as needed for pain. Can also add Tylenol 1000 mg every 8 hours if needed for pain. If Ibuprophen and Tylenol are not effective then use the Oxycodone but keep in mind it can cause serious constipation issues. Drink lots of water. Call if bleeding more than a pad per hour. Clear to brownish discharge will last for about 3 weeks. Dressing / Incision Call your doctor if you observe: Fever of 101 or Higher, Inability to urinate, Inability to have a bowel movement and Using more than 1 pad per hour Follow Up Care Please Follow Up With: hSad Bliss MD When: 3 to 4 weeks Test Results: Test results from this visit will be discussed in further detail at your follow-up appointment, if applicable. Discharge Plan Admission Primary Reason for Your Visit: Heavy Menses Attending Provider: Shad Bliss Primary Care Provider: hSad Diaz Discharge Orders/Prescriptions Prescriptions: New oxycodone 5 mg capsule 5 mg PO Q6H PRN (Reason: pain) 7 Days Qty: 7 RF: 0 Continued fluoxetine 20 MG capsule 20 mg PO DAILY RF: 0 acetaminophen 325 MG capsule 325 mg PO PRN PRN (Reason: Pain 1-10 Or Fever) RF: 0 ibuprofen 200 MG tablet 200 mg PO PRN PRN (Reason: Pain 1-10 Or Fever) RF: 0 albuterol sulfate 1 PUFF inhaler 1 puff INHALATION Q4H PRN PRN (Reason: Sob &/Or Wheezing) RF: 0 cholecalciferol (vitamin D3) 1,250 mcg (50,000 unit) capsule 50,000 unit PO TH RF: 0 Referrals / Follow Up: Shad Diaz MD [Primary Care Provider] - Disposition Disposition (needs filled in before D/C Order can be placed): Home, Self Care
== END 2020-11-01 14:57 | disposition home or self-care (01) ==
LOC: SDC 08:37 → AC 09:11
PROVIDERS: PCP Family Medicine; Referring Provider Obstetrics & Gynecology; Visit Provider Obstetrics & Gynecology
PROC: 0U5B8ZZ Destruction of Endometrium, Via Natural or Artificial Opening Endoscopic (ICD-10-PCS; CPT 58563; principal; 2020-11-01 10:00)
DX: N92.4 Excessive bleeding in the premenopausal period (principal); Z79.899 Other long term (current) drug therapy; Z80.3 Family history of malignant neoplasm of breast; Z83.3 Family history of diabetes mellitus
CPT/HCPCS: 58563; 36415; 85027; 85610; 85730; 86850; 86900; 86901; 88305; J7120; J2405

== ENCOUNTER → 2021-01-18 10:33 | Outpatient (CLI) | payer OTHER, SELFPAY ==
--- NOTE | 2021-01-18 10:38 | RAD_ITS ---
STUDY: X-RAY - ABDOMEN/PELVIS REASON FOR EXAM: Female, 41 years old. CALCULUS OF KIDNEY TECHNIQUE: Two AP supine views of the abdomen and pelvis. COMPARISON: 07/19/2020 FINDINGS: Normal visualized lung bases. There is an unremarkable bowel gas pattern. There is no demonstrated free abdominal air. The visualized liver, spleen and kidneys are grossly normal in size and morphology. Stable calcifications overlying the left kidney. Normal visualized osseous structures. RAD/Abdomen Single View IMPRESSION: No acute findings Left nephrolithiasis Electronically Signed: Maged Carroll MD at 11:47 EDT , Service support ,
[2021-01-18 12:11] LABS: AST(SGOT) 20 U/L (15-37); Alanine Aminotransfer ALT/SGPT 30 U/L (13-56); Cholesterol 187 mg/dL (200); High Density Lipoprotein 62 mg/dL; Triglycerides 59 mg/dL; Very Low Density Lipoprotein 12 mg/dL (5-40)
[2021-01-18 12:12] LABS: hCG Titer Quant., Serum < 1 mIU/mL (1-3)
== END ==
PROVIDERS: Dermatology; PCP Family Medicine; Referring Provider Urology; Visit Provider Urology
DX: N20.0 Calculus of kidney (principal); L70.0 Acne vulgaris; L30.8 Other specified dermatitis; L70.5 Acne excoriee; L71.8 Other rosacea; L70.8 Other acne; Z79.899 Other long term (current) drug therapy
CPT/HCPCS: 36415; 74018; 80061; 84450; 84460; 84702

== ENCOUNTER → 2021-02-21 13:54 | Outpatient (CLI) | payer OTHER, SELFPAY ==
[2021-02-21 14:17] LABS: Internal QC Validated? YES +Cl - CLEAR BKGD; Pregnancy, Urine Negative Negative
== END ==
PROVIDERS: PCP Family Medicine; Referring Provider Dermatology; Visit Provider Dermatology
DX: L70.0 Acne vulgaris (principal); L30.8 Other specified dermatitis; L70.5 Acne excoriee; L71.8 Other rosacea; L70.8 Other acne; Z79.899 Other long term (current) drug therapy
CPT/HCPCS: 81025

== ENCOUNTER 2021-03-22 15:49 | Outpatient (CLI) | payer OTHER, SELFPAY ==
[2021-03-22 16:29] LABS: Internal QC Validated? YES +Cl - CLEAR BKGD
[2021-03-22 16:31] LABS: Pregnancy, Urine Negative Negative
== END 2021-03-22 23:59 | disposition short-term general hospital (02) ==
LOC: LAB 15:51
PROVIDERS: PCP Family Medicine; Visit Provider Dermatology
DX: L70.0 Acne vulgaris (principal); L30.8 Other specified dermatitis; L70.5 Acne excoriee; L71.8 Other rosacea; Z79.899 Other long term (current) drug therapy
CPT/HCPCS: 81025

== ENCOUNTER 2021-05-04 13:12 | Outpatient (CLI) | payer OTHER, SELFPAY ==
[2021-05-04 14:37] LABS: Internal QC Validated? YES +Cl - CLEAR BKGD; Pregnancy, Serum, hCG Quali. NEGATIVE Negative
[2021-05-04 14:44] LABS: AST(SGOT) 22 U/L (15-37); Alanine Aminotransfer ALT/SGPT 27 U/L (13-56); Cholesterol 240 mg/dL (200); High Density Lipoprotein 47 mg/dL; Triglycerides 109 mg/dL; Very Low Density Lipoprotein 22 mg/dL (5-40)
== END 2021-05-04 23:59 | disposition home or self-care (01) ==
LOC: LAB 13:15
PROVIDERS: PCP Family Medicine; Visit Provider Dermatology
DX: L70.0 Acne vulgaris (principal); Z79.899 Other long term (current) drug therapy; L70.5 Acne excoriee; L23.3 Allergic contact dermatitis due to drugs in contact with skin
CPT/HCPCS: 36415; 80061; 83721; 84450; 84460; 84703

== ENCOUNTER 2021-05-11 14:50 | Outpatient (CLI) | payer OTHER, SELFPAY ==
[2021-05-11 18:09] LABS: Vitamin D,25 Hydroxy 20.7 ng/mL
[2021-05-11 18:10] LABS: ALB/GLOB Ratio 0.9 RATIO (0.9-2.4); AST(SGOT) 22 U/L (15-37); Alanine Aminotransfer ALT/SGPT 30 U/L (13-56); Albumin, Serum 3.6 g/dL (3.2-5.0); Alkaline Phosphatase 77 U/L (45-117); Anion Gap 6 (5-15); BUN 14 mg/dL (7-18); BUN/Creat Ratio 16.7 RATIO (10-20); Calcium,Total 8.7 mg/dL (8.5-10.1); Chloride 107 mmol/L (98-107); Creatinine, Serum 0.84 mg/dL (0.55-1.02); EST Glomerular Filtration Rate 79 mL/min (>60); Est Glom Filt Rate - Afr Amer 96 mL/min (>60); Globulin 3.9 g/dL (2.2-4.2); Glucose 87 mg/dL (74-106); Potassium 3.8 mmol/L (3.5-5.1); Protein, Total 7.5 g/dL (6.4-8.2); Sodium Level 137 mmol/L (136-145)
== END 2021-05-11 23:59 | disposition home or self-care (01) ==
LOC: MFPLAB 14:51
PROVIDERS: PCP Family Medicine; Referring Provider Family Medicine; Visit Provider Family Medicine
DX: E55.9 Vitamin D deficiency, unspecified (principal)
CPT/HCPCS: 36415; 80053; 82306

== ENCOUNTER 2021-06-13 14:22 | Outpatient (CLI) | payer OTHER, SELFPAY ==
--- NOTE | 2021-06-13 14:37 | RAD_ITS ---
STUDY: X-RAY - ABDOMEN/PELVIS REASON FOR EXAM: Female, 41 years old. History of left renal calculi. TECHNIQUE: Single AP view of the abdomen / pelvis on 2 images. COMPARISON: 01/18/2021. FINDINGS: Normal visualized lung bases. There is an unremarkable bowel gas pattern. Moderate amount of feces in the colon. There is no demonstrated free abdominal air. Multiple small calcifications project over the left renal outline, the largest of which is stable and measures approximately 4 mm in diameter. Phleboliths. Tubal ligation clips. Normal visualized osseous structures. RAD/Abdomen Single View IMPRESSION: Stable abdomen with multiple small calcifications projected over the left renal shadow as described. No acute abnormality. Electronically Signed: Edward Thapa MD at 9:14 EDT ,
== END 2021-06-13 23:59 | disposition home or self-care (01) ==
LOC: RAD 14:27 → LABSPEC 16:48
PROVIDERS: PCP Family Medicine; Referring Provider Urology; Visit Provider Urology
DX: N20.0 Calculus of kidney (principal); R31.29 Other microscopic hematuria
CPT/HCPCS: 74018; 87077; 87086; 87088; 87186

== ENCOUNTER 2021-06-27 16:15 | Outpatient (CLI) | payer OTHER, SELFPAY ==
[2021-06-27 16:41] LABS: Internal QC Validated? YES +Cl - CLEAR BKGD; Pregnancy, Urine Negative Negative
== END 2021-06-27 23:59 | disposition home or self-care (01) ==
LOC: LAB 16:16
PROVIDERS: PCP Family Medicine; Referring Provider Dermatology; Visit Provider Dermatology
DX: Z79.899 Other long term (current) drug therapy (principal)
CPT/HCPCS: 81025

== ENCOUNTER → 2021-08-11 | Outpatient (CLI) | payer BC, SELFPAY ==
[2021-08-11 16:32] LABS: Internal QC Validated? YES +Cl - CLEAR BKGD; Pregnancy, Urine Negative Negative
== END | disposition home or self-care (01) ==
LOC: LAB 15:46
PROVIDERS: PCP Family Medicine; Referring Provider Dermatology; Visit Provider Dermatology
DX: L70.0 Acne vulgaris (principal); L70.5 Acne excoriee; L85.3 Xerosis cutis; Z79.899 Other long term (current) drug therapy; K13.0 Diseases of lips; L23.3 Allergic contact dermatitis due to drugs in contact with skin
CPT/HCPCS: 81025

== ENCOUNTER → 2021-08-11 | Outpatient (CLI) | payer BC, SELFPAY ==
[2021-08-17 08:27] LABS: HPV Reflexed? NOT INDICATED
== END | disposition home or self-care (01) ==
LOC: LABSPEC 15:48
PROVIDERS: PCP Family Medicine; Visit Provider Obstetrics & Gynecology
DX: Z12.4 Encounter for screening for malignant neoplasm of cervix (principal)
CPT/HCPCS: 88175; G0145

== ENCOUNTER → 2021-09-09 | Outpatient (CLI) | payer BC, SELFPAY ==
[2021-09-09 15:34] LABS: Internal QC Validated? YES +Cl - CLEAR BKGD
[2021-09-09 15:35] LABS: Pregnancy, Urine Negative Negative
== END | disposition home or self-care (01) ==
LOC: LAB 13:32
PROVIDERS: PCP Family Medicine; Visit Provider Dermatology
DX: L70.0 Acne vulgaris (principal); L70.5 Acne excoriee; L85.3 Xerosis cutis; Z79.899 Other long term (current) drug therapy; K13.0 Diseases of lips; L23.3 Allergic contact dermatitis due to drugs in contact with skin; L30.9 Dermatitis, unspecified
CPT/HCPCS: 36415; 81025

== ENCOUNTER → 2022-01-23 | Outpatient (CLI) | payer OTHER, SELFPAY ==
[2022-01-23 12:24] LABS: Absolute Lymphocyte Count 2.38 X10^3/uL (0.83-4.51); Absolute Neutrophil Count 5.8 X10^3/uL (2.0-7.7); Basophil# 0.05 X10^3/uL; Basophil% 0.6 % (0-1); Eosinophil# 0.23 X10^3/uL; Eosinophils% 2.6 % (0-5); Hematocrit 40.7 % (37-47); Hemoglobin 13.5 g/dL (12.0-15.0); Lymphocyte # 2.38 X10^3/ul (0.83-4.51); Lymphocyte % 26.5 % (19-41); Mean Corp Hgb Conc 33.2 g/dL (32-36); Mean Corpuscular Hgb 32.7 pg (27.0-32.0); Mean Corpuscular Volume 98.5 fL (81-99); Mean Platelet Vol. 9.7 fl (6.2-12.0); Monocyte% 5.6 % (0-10); NRBC Flagged by Analyzer 0 % (0-5); Neutrophil # 5.79 X10^3/uL (2.7-7.7); Neutrophil % 64.4 % (47-70); Platelet Count 356 K/mm3 (150-450); RBC Distribution Width CV 13.3 % (11.6-14.6); RBC Distribution Width SD 48.8 fl (35.1-43.9); Red Blood Count 4.13 M/mm3 (4.2-5.4)
[2022-01-23 12:58] LABS: ALB/GLOB Ratio 0.9 RATIO (0.9-2.4); AST(SGOT) 15 U/L (15-37); Alanine Aminotransfer ALT/SGPT 24 U/L (13-56); Albumin, Serum 3.5 g/dL (3.2-5.0); Alkaline Phosphatase 77 U/L (45-117); Anion Gap 7 (5-15); BUN 18 mg/dL (7-18); BUN/Creat Ratio 21.9 RATIO (10-20); Calcium,Total 8.9 mg/dL (8.5-10.1); Chloride 107 mmol/L (98-107); Cholesterol 236 mg/dL (200); Creatinine, Serum 0.82 mg/dL (0.55-1.02); EST Glomerular Filtration Rate 81 mL/min (>60); Est Glom Filt Rate - Afr Amer 98 mL/min (>60); Globulin 3.9 g/dL (2.2-4.2); Glucose 102 mg/dL (74-106); High Density Lipoprotein 46 mg/dL; Potassium 4.2 mmol/L (3.5-5.1); Protein, Total 7.4 g/dL (6.4-8.2); Sodium Level 139 mmol/L (136-145); Triglycerides 101 mg/dL; Very Low Density Lipoprotein 20 mg/dL (5-40)
[2022-01-23 13:20] LABS: Vitamin D,25 Hydroxy 25.2 ng/mL
[2022-01-24 13:05] LABS: Hemoglobin A1c 6.1 % (3.8-5.6)
== END | disposition home or self-care (01) ==
LOC: MFPLAB 10:40
PROVIDERS: PCP Family Medicine; Referring Provider Family Medicine; Visit Provider Family Medicine
DX: R73.09 Other abnormal glucose (principal); E55.9 Vitamin D deficiency, unspecified; E78.5 Hyperlipidemia, unspecified
CPT/HCPCS: 36415; 80053; 80061; 82306; 83036; 85025

== ENCOUNTER → 2022-08-21 | Outpatient (CLI) | payer OTHER, SELFPAY ==
[2022-08-21 15:17] LABS: Absolute Lymphocyte Count 1.89 X10^3/uL (0.83-4.51); Absolute Neutrophil Count 5.6 X10^3/uL (2.0-7.7); Basophil# 0.05 X10^3/uL; Basophil% 0.6 % (0-1); Eosinophil# 0.25 X10^3/uL; Hematocrit 43.2 % (37-47); Hemoglobin 13.8 g/dL (12.0-15.0); Lymphocyte # 1.89 X10^3/ul (0.83-4.51); Lymphocyte % 22.6 % (19-41); Mean Corp Hgb Conc 31.9 g/dL (32-36); Mean Corpuscular Hgb 31.7 pg (27.0-32.0); Mean Corpuscular Volume 99.1 fL (81-99); Mean Platelet Vol. 10.8 fl (6.2-12.0); Monocyte# 0.54 X10^3/uL; Monocyte% 6.5 % (0-10); NRBC Flagged by Analyzer 0 % (0-5); Neutrophil # 5.61 X10^3/uL (2.7-7.7); Neutrophil % 67.1 % (47-70); Platelet Count 288 K/mm3 (150-450); RBC Distribution Width CV 13.6 % (11.6-14.6); RBC Distribution Width SD 50.1 fl (35.1-43.9); Red Blood Count 4.36 M/mm3 (4.2-5.4); White Blood Count 8.4 K/mm3 (4.4-11.0)
[2022-08-21 15:39] LABS: AST(SGOT) 17 U/L (15-37); Alanine Aminotransfer ALT/SGPT 18 U/L (13-56); Albumin, Serum 3.5 g/dL (3.2-5.0); Alkaline Phosphatase 70 U/L (45-117); Anion Gap 5 (5-15); BUN 13 mg/dL (7-18); BUN/Creat Ratio 19.1 RATIO (10-20); Calcium,Total 8.9 mg/dL (8.5-10.1); Chloride 110 mmol/L (98-107); Cholesterol 179 mg/dL (200); Creatinine, Serum 0.68 mg/dL (0.55-1.02); EST Glomerular Filtration Rate 100 mL/min (>60); Est Glom Filt Rate - Afr Amer 121 mL/min (>60); Globulin 3.6 g/dL (2.2-4.2); Glucose 77 mg/dL (74-106); High Density Lipoprotein 51 mg/dL; Potassium 4.2 mmol/L (3.5-5.1); Protein, Total 7.1 g/dL (6.4-8.2); Sodium Level 139 mmol/L (136-145); Triglycerides 64 mg/dL; Very Low Density Lipoprotein 13 mg/dL (5-40)
[2022-08-21 15:47] LABS: Hemoglobin A1c 6.1 % (3.8-5.6)
[2022-08-21 15:54] LABS: Vitamin D,25 Hydroxy 28.9 ng/mL
== END | disposition home or self-care (01) ==
LOC: MFPLAB 11:39
PROVIDERS: PCP Family Medicine; Visit Provider Family Medicine
DX: E78.5 Hyperlipidemia, unspecified (principal); R73.02 Impaired glucose tolerance (oral); R73.09 Other abnormal glucose; E55.9 Vitamin D deficiency, unspecified
CPT/HCPCS: 36415; 80053; 80061; 82306; 83036; 85025

== ENCOUNTER → 2022-11-09 | Outpatient (CLI) | payer OTHER, SELFPAY ==
[2022-11-09 12:18] LABS: Absolute Lymphocyte Count 2.28 X10^3/uL (0.83-4.51); Basophil# 0.05 X10^3/uL; Basophil% 0.6 % (0-1); Eosinophil# 0.25 X10^3/uL; Eosinophils% 3.1 % (0-5); Hematocrit 42.5 % (37-47); Lymphocyte # 2.28 X10^3/ul (0.83-4.51); Mean Corp Hgb Conc 32.9 g/dL (32-36); Mean Corpuscular Hgb 32.3 pg (27.0-32.0); Mean Corpuscular Volume 97.9 fL (81-99); Mean Platelet Vol. 9.5 fl (6.2-12.0); Monocyte# 0.55 X10^3/uL; Monocyte% 6.7 % (0-10); NRBC Flagged by Analyzer 0 % (0-5); Neutrophil % 61.4 % (47-70); Platelet Count 315 K/mm3 (150-450); RBC Distribution Width CV 13.1 % (11.6-14.6); Red Blood Count 4.34 M/mm3 (4.2-5.4); White Blood Count 8.2 K/mm3 (4.4-11.0)
[2022-11-09 12:38] LABS: AST(SGOT) 14 U/L (15-37); Alanine Aminotransfer ALT/SGPT 20 U/L (13-56); Albumin, Serum 3.6 g/dL (3.2-5.0); Alkaline Phosphatase 70 U/L (45-117); Anion Gap 6 (5-15); BUN 15 mg/dL (7-18); BUN/Creat Ratio 18.9 RATIO (10-20); Calcium,Total 9.1 mg/dL (8.5-10.1); Chloride 107 mmol/L (98-107); Cholesterol 189 mg/dL (200); Creatinine, Serum 0.79 mg/dL (0.55-1.02); EST Glomerular Filtration Rate 84 mL/min (>60); Est Glom Filt Rate - Afr Amer 101 mL/min (>60); Globulin 3.7 g/dL (2.2-4.2); Glucose 96 mg/dL (74-106); High Density Lipoprotein 56 mg/dL; Potassium 4.1 mmol/L (3.5-5.1); Protein, Total 7.3 g/dL (6.4-8.2); Sodium Level 139 mmol/L (136-145); Triglycerides 74 mg/dL; Very Low Density Lipoprotein 15 mg/dL (5-40)
[2022-11-09 12:41] LABS: Vitamin D,25 Hydroxy 34.7 ng/mL
[2022-11-09 13:06] LABS: Hemoglobin A1c 6.1 % (3.8-5.6)
== END | disposition home or self-care (01) ==
LOC: MFPLAB 11:25
PROVIDERS: PCP Family Medicine; Visit Provider Family Medicine
DX: E78.5 Hyperlipidemia, unspecified (principal); E55.9 Vitamin D deficiency, unspecified; R73.02 Impaired glucose tolerance (oral)
CPT/HCPCS: 36415; 80053; 80061; 82306; 83036; 85025